=== PATIENT | male | born 1950 | race Caucasian/White ===

== ENCOUNTER 2024-03-05 11:34 | Inpatient (IN) ==
--- NOTE | 2024-03-05 12:02 | Emergency Department Note ---
Impression & Plan LECHUGA (dyspnea on exertion), Pulmonary emboli, Bronchopneumonia ED Provider Note HISTORY OF PRESENT ILLNESS: Patient is a 74-year-old male presenting with shortness of breath. provides most of history, given patient's dementia. Reports that the patient has been feeling short of breath today with any sort of exertion. Reports he is able to take about 10 steps before he becomes very winded. She reports this is new for him. He just had bilateral inguinal hernia repair surgery performed 6 days ago. Reports the patient has been doing well. He has been taking OxyContin at nighttime for his pain control and she reports his last dose was last night. Took a baby aspirin this morning. Denies any chest pain currently. Denies any DVT or PE history. He is not on any anticoagulation. He reportedly took a dose of baby aspirin this morning. He denies any pleuritic component to his shortness of breath. Denies any significant cough or fevers in the last few days. ROS: as above PHYSICAL EXAM: Constitutional: Patient appears in no acute distress. HENT: Head: Normocephalic and atraumatic. Eyes: EOMI, PERRL Mouth/Throat: Mucous membranes moist. Neck: Trachea midline. Neck supple. Cardiovascular: RRR, No murmurs, rubs or gallops. Intact distal pulses. Pulmonary/Chest: No respiratory distress. Breath sounds clear and equal bilaterally. No wheezes or rales. Abdominal: Abdomen soft, no tenderness, rebound or guarding. Musculoskeletal: No edema, tenderness or deformity noted. Skin: Warm and dry. No rash, erythema, pallor or cyanosis Psychiatric: Appropriate mood and affect for situation. Neurological: Alert and keenly responsive. CN II-XII grossly intact, moving all extremities equally and fully. MDM: - Vitals signs stable - History obtained via patient and patient's , given patient's dementia. History as above. - Chronic conditions affecting care: HTN - Differential diagnoses include, but are not limited to: Congestive heart failure; acute coronary syndrome; COPD/asthma exacerbation; pulmonary edema; pulmonary embolism; pneumonia; pneumothorax; viral syndrome - Order placed for continuous cardiac monitoring. At this time, monitor showed rate of 70 bpm with normal sinus rhythm, per my interpretation. - External medical records reviewed. Operative report dated was reviewed. Patient had bilateral inguinal hernia repair surgery knee via robotic assisted bilateral laparoscopic inguinal hernia repair. - EKG interpreted by myself showed normal sinus rhythm. Rate 70 bpm. QT 442. No acute ischemic changes. Noted to have a right bundle branch block. - Laboratory workup interpreted by myself showed leukocytosis (WBC 12.88) with left shift; stable electrolytes; normal troponin; normal BNP - COVID/flu/RSV negative - CXR negative for pneumonia, per my interpretation - CT PE obtained, given patient's dyspnea on exertion and recent surgery. CT PE showed small segmental and subsegmental PE within right lung. Also noted to have mild alveolar opacities in right lower lobe conerning for bronchopneumonia. - Patient started on heparin drip in ER. - Given 2g IV rocephin for pneumonia coverage. - Discussion was had with caseworker about patient's case and need for admission - Hospitalist consulted for admission - [facility] and [facility]. I have personally spent 32 minutes of critical care time in the direct management of this patient. This includes bedside care, interpretation of diagnostic studies, and testing, discussion with consultants, patient, and family members, and other required patient management activities. This 32 minutes is in excess of all separately billable procedures. 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 hx balance problem/now resolved. 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 Reading disability, developmental Reading comprehension disorder Fear of needles Dementia beginning stages/follows pcp SOB (shortness of breath) on exertion mild with daily activity and stairs. Bifascicular block 2 yr ago/Dr. Hu History of hypertension Surgical History (Updated 02/28/24 @ 13:19 by Makayla Lakhani RN) H/O bilateral inguinal hernia repair (02/28/24) Robotic Assisted Bilateral Laparoscopic Inguinal Hernia Repair(Bilateral) - Francisco Suggs DO, FACS History of colonoscopy H/O wisdom tooth extraction Family History Mother Hypertension Myocardial infarction Diabetes Father Myocardial infarction Hypertension Grandfather (Maternal) Myocardial infarction Hypertension Social History (Updated 12/29/23 @ 09:27 by Emma Johnson RN) Smoking Status: Never smoker Second Hand Exposure: No; Do You Dip or Chew Tobacco: No; Hx Alcohol Use: No Hx Substance Use: No Preferred Language: Turkish Communication Ability: Effective Communication Ability Comment: pt has beg stages dementia/ helps with interview/pt comm is effective Dog Track Kennel 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 Required: No Beliefs That Will Affect Care: None marital status: Current Living Situation: Spouse current occupational status: retired How many Children do You have: 2 Feels Safe at Home: Yes Diet: regular during the past year weight has: decreased > 10 lbs Assistive Devices: None Allergies Allergies Allergy/AdvReac Type Severity Reaction Status Date / Time acetaminophen [From Tylenol] Allergy Unknown Shortness Verified 03/05/24 13:08 of breath, rash diphenhydramine Allergy Unknown Rash Verified 03/05/24 13:08 [From Benadryl] ibuprofen [From Advil] Allergy Unknown Rash Verified 03/05/24 13:08 NSAIDS (Non-Steroidal Allergy Unknown Rash Verified 03/05/24 13:08 Anti-Inflamma Home Meds Home Medications Medication Instructions Recorded Confirmed Lactobacillus acidophilus and 1 cap PO HS 04/21/22 03/05/24 rhamnosus 15 billion cell capsule (Probiotic) aspirin 81 mg tablet,delayed 81 mg PO HS 04/21/22 03/05/24 release Previous Rx's Medication Instructions Recorded oxycodone 5 mg tablet 5 - 10 mg (1 - 2 x 5 mg) PO 03/03/24 .[id number] PRN pain, for initial therapy, max 6 tabs per day #15 tabs Results & Data (ED) Vital Signs Vital Signs - 24 hr 03/05/24 11:35 03/05/24 12:40 03/05/24 12:41 Temperature 36.8 C Temperature Source Temporal Artery Scan Pulse Rate 90 Pulse Rate [Apical] 78 Pulse Rhythm Regular Pulse Rhythm [Apical] Regular Pulse Strength [Apical] Normal Respiratory Rate 20 19 Respiratory Effort / Characteristics Non-Labored Spontaneous Non-Labored Spontaneous Respiratory Depth Normal Normal Respiratory Pattern Regular Blood Pressure 106/79 Blood Pressure [Right Arm] 166/109 H Blood Pressure Mean 88 Blood Pressure Mean [Right Arm] 128 Pulse Oximetry 97 97 98 Oxygen Delivery Method Room Air Room Air Room Air Sepsis Recent Fever Within 48 Hours No Sepsis New/Unexplained Change in Mental Status No Sepsis Action Taken by Nursing No Action Required 03/05/24 12:43 03/05/24 14:42 Temperature Temperature Source Pulse Rate 74 Pulse Rate [Apical] 70 Pulse Rhythm Pulse Rhythm [Apical] Pulse Strength [Apical] Normal Respiratory Rate 18 Respiratory Effort / Characteristics Non-Labored Spontaneous Respiratory Depth Normal Respiratory Pattern Regular Blood Pressure Blood Pressure [Right Arm] 179/103 H Blood Pressure Mean Blood Pressure Mean [Right Arm] 128 Pulse Oximetry 97 Oxygen Delivery Method Room Air Sepsis Recent Fever Within 48 Hours Sepsis New/Unexplained Change in Mental Status Sepsis Action Taken by Nursing Laboratory Data 03/05/24 12:00 03/05/24 12:00 Lab Results 03/05/24 03/05/24 Range/Units 12:00 Unknown WBC 12.88 H (4.8-10.8) K/ul RBC 4.82 (4.70-6.10) M/uL Hgb 15.3 (14.0-18.0) g/dl Hct 42.9 (42.0-52.0) % MCV 89.0 (80.0-100.0) fL MCH 31.7 (25.0-34.0) pg MCHC 35.7 (32.0-36.0) g/dL RDW Std Deviation 41.3 (36.4-46.3) fL RDW Coeff of Bailey 12.6 (11.5-14.5) % Plt Count 341 (130-400) K/uL MPV 9.1 L (9.4-12.4) fL Immature Gran % (Auto) 0.4 % Neut % (Auto) 75.5 % Lymph % (Auto) 14.8 % [place] % (Auto) 8.0 % Eos % (Auto) 0.6 % Baso % (Auto) 0.7 % Neut # (Auto) 9.73 H (1.40-6.50) K/uL Lymph # (Auto) 1.90 (1.20-3.40) K/uL [place] # (Auto) 1.03 H (0.11-0.59) K/uL Eos # (Auto) 0.08 (0.00-0.50) K/uL Baso # (Auto) 0.09 (0.00-0.20) K/uL Immature Gran # (Auto) 0.05 (0.01-0.20) K/uL PT 11.0 (9.0-12.0) Seconds INR 1.0 (0.9-1.1) Sodium 138 (136-145) mmol/L Potassium 4.3 (3.5-5.1) mmol/L Chloride 101 (98-107) mmol/L Carbon Dioxide 31 (21-32) mmol/L Anion Gap 6 (3-11) BUN 19 (6-23) mg/dl Creatinine 1.08 (0.6-1.4) mg/dl Est Cr Clr Drug Dosing 43.0 ml/min Est GFR ( Amer) 76.9 ml/min Est GFR (Non-Af Amer) 66.3 ml/min BUN/Creatinine Ratio 17.6 (10-20) Glucose 104 H (70-99(Fasting)) mg/dl Lactate 1.3 (0.4-2.0) mmol/L Calcium 9.6 (8.6-10.3) mg/dl Magnesium 2.2 (1.7-2.4) mg/dl Total Bilirubin 1.9 H (0.2-1.0) mg/dl AST 50 H (13-39) U/L ALT 49 (7-52) U/L Alkaline Phosphatase 62 (34-104) U/L Troponin I High Sens 5.4 (0-20) pg/ml B-Natriuretic Peptide 69 (0-100) pg/ml Total Protein 7.4 (6.0-8.3) gm/dl Albumin 4.2 (3.4-5.0) gm/dl Globulin 3.2 (2.5-4.0) gm/dl Albumin/Globulin Ratio 1.3 (0.9-2) SARS-CoV-2 (PCR) NEGATIVE (Negative) Influenza Type A (PCR) Negative (Neg) Influenza Type B (PCR) Negative (Neg) RSV (RT-PCR) Negative (Neg) Administered Medications Discontinued Medications Ioversol (Optiray 320 125ml) 74 ml IV ONCE ONE Stop: 03/05/24 13:48 Last Admin: 03/05/24 13:47 Dose: 74 ml Documented By: RAMÓN Imaging Data Radiologist's Impression: Chest X-Ray 03/05/24 11:50 SINGLE VIEW CHEST CLINICAL HISTORY: Dyspnea FINDINGS: 2 AP, portable, upright chest radiographs are compared to study dated 02/05/2024 and correlated with chest CT dated 04/21/2022. The heart is enlarged. The pulmonary vasculature is noncontrast. The lungs and pleural spaces are clear. No pneumothorax is seen. The skeletal structures are osteopenic. The bony thorax is grossly intact. IMPRESSION: Cardiomegaly with no active disease in the chest. ACT 112: Negative or not required by law. Electronically signed by: Aj Segal M.D. 03/05/2024 12:11 PM Chest CTA 03/05/24 13:32 CT ANGIOGRAPHY OF THE CHEST, PULMONARY EMBOLUS PROTOCOL CLINICAL HISTORY: Shortness of breath. Recent bilateral inguinal hernia repair. Evaluate for pulmonary embolus. COMPARISON STUDY: Chest CT April 21, 2022. Chest radiograph performed earlier today. TECHNIQUE: Following IV administration of 74 mL of Optiray, helical axial images of the chest were obtained utilizing the pulmonary embolus protocol. Maximal intensity projections and sagittal and coronal reformats were viewed on an independent 3D workstation. IV contrast was administered without complication. Automated exposure control was utilized for the study. A dose lowering technique was utilized adhering to the principles of ALARA. CT DOSE: 396.74 mGy.cm FINDINGS: There are several small segmental and subsegmental pulmonary emboli within the right lung, including a segmental pulmonary embolus within the right lower lobe on image 143. No central pulmonary embolus is present. There is no pneumothorax or pleural effusion. No thoracic lymphadenopathy is present. Pectus excavatum deformity is incidentally noted. A few alveolar opacities within the right lower lobe measure up to 2.1 cm. Central airways are patent. There are no acute fractures within the bony thorax. A small amount of extraluminal gas within the upper abdomen is noted. Peripherally calcified density adjacent to the thoracic aorta is unchanged since prior exam. This is benign. Mild upper abdominal/omental stranding is noted. IMPRESSION: 1. A few small segmental and subsegmental pulmonary emboli within the right lung. 2. Mild alveolar opacities within the right lower lobe which favor an infectious process such as bronchopneumonia. The appearance is not typical for pulmonary infarcts. 3. Small amount of extraluminal gas within the upper abdomen, likely postsurgical. 4. Mild upper abdominal/omental stranding, a nonspecific finding. ACT 112: Negative or not required by law. Electronically signed by: Parish Vaughan M.D. 03/05/2024 2:18 PM Discharge Plan Visit Data Chief Complaint: Leg Weakness, Bilateral Stated Complaint: SOB, TROUBLE WALKING ED Provider: Palmira Mckinney Discharge Problem: LECHUGA (dyspnea on exertion), Pulmonary emboli, Bronchopneumonia Forms Stand Alone Forms: [employer] Prescriptions Prescriptions: No Action oxycodone 5 mg tablet 5 - 10 mg PO .[id number] PRN (Reason: pain, for initial therapy, max 6 tabs per day) Qty: 15 0RF aspirin 81 mg Tablet,Delayed Release (Dr/Ec) 81 mg PO HS Probiotic 15 billion cell Capsule 1 cap PO HS Referrals Referrals: Pratik Shabazz MD [Primary Care Provider] -
--- NOTE | 2024-03-05 12:12 | XRay Report ---
SINGLE VIEW CHEST CLINICAL HISTORY: Dyspnea FINDINGS: 2 AP, portable, upright chest radiographs are compared to study dated 02/05/2024 and correla tray with chest CT dated 04/21/2022. The heart is enlarged. The pulmonary vasculature is noncontrast. Th e lungs and pleural spaces are clear. No pneumothorax is seen. The skeletal structures are osteopenic . The bony thorax is grossly intact. IMPRESSION: Cardiomegaly with no active disease in the chest. ACT 112: Negative or not required by law. Electronically signed by: Aj Segal M.D. 03/05/2024 12:11 PM
[2024-03-05 12:19] LABS: Basophils # (auto) 0.09 K/uL (0.00-0.20); Basophils % (auto) 0.7 %; Eosinophils # (auto) 0.08 K/uL (0.00-0.50); Eosinophils % (auto) 0.6 %; Hematocrit (blood only) 42.9 % (42.0-52.0); Hemoglobin 15.3 g/dl (14.0-18.0); Immature Granulocytes # (auto) 0.05 K/uL (0.01-0.20); Immature Granulocytes % (auto) 0.4 %; Lymphocytes % (auto) 14.8 %; Mean Corpuscular Hemoglobin 31.7 pg (25.0-34.0); Mean Corpuscular Hgb Conc 35.7 g/dL (32.0-36.0); Mean Platelet Volume 9.1 fL (9.4-12.4); Monocytes # (auto) 1.03 K/uL (0.11-0.59); Neutrophils # (auto) 9.73 K/uL (1.40-6.50); Neutrophils % (auto) 75.5 %; Platelet Count 341 K/uL (130-400); RDW Coefficient of Variation 12.6 % (11.5-14.5); RDW Standard Deviation 41.3 fL (36.4-46.3); Red Blood Count 4.82 M/uL (4.70-6.10); White Blood Count 12.88 K/ul (4.8-10.8)
[2024-03-05 12:36] LABS: Albumin Globulin Ratio 1.3 (0.9-2); Albumin Level 4.2 gm/dl (3.4-5.0); BUN Creatinine Ratio 17.6 (10-20); Bilirubin,Total 1.9 mg/dl (0.2-1.0); Calcium 9.6 mg/dl (8.6-10.3); Est GFR (African American) 76.9 ml/min; Est GFR (Non-African American) 66.3 ml/min; Globulin 3.2 gm/dl (2.5-4.0); Magnesium 2.2 mg/dl (1.7-2.4); Potassium 4.3 mmol/L (3.5-5.1); Total Protein 7.4 gm/dl (6.0-8.3)
[2024-03-05 12:41] LABS: Troponin I High Sensitivity 5.4 pg/ml (0-20)
[2024-03-05 13:30] LABS: Influenza A virus by PCR Negative (Neg); Influenza B virus by PCR Negative (Neg); RSV by PCR Negative (Neg); SARS CoV2 RNA(COVID-19) Ceph NEGATIVE (Negative)
--- NOTE | 2024-03-05 13:45 | Electrocardiogram Report ---
Test Reason : Blood Pressure : / mmHG Vent. Rate : 070 BPM Atrial Rate : 070 BPM P-R Int : 154 ms QRS Dur : 136 ms QT Int : 442 ms P-R-T Axes : 058 -42 027 degrees QTc Int : 477 ms Normal sinus rhythm Left axis deviation Right bundle branch block Abnormal ECG When compared with ECG of 05-FEB-2024 12:05, Nonspecific T wave abnormality now evident in Anterior leads Confirmed by Pratik Miramontes ([id number]) on 03/05/2024 1:45:45 PM Referred By: REFERRED SELF Confirmed By:Cassius Miramontes
[2024-03-05] MEDS: OPTIRAY 320 125ml IV ONE (13:47)
--- NOTE | 2024-03-05 14:19 | CT Scan Report ---
CT ANGIOGRAPHY OF THE CHEST, PULMONARY EMBOLUS PROTOCOL CLINICAL HISTORY: Shortness of breath. Recent bilateral inguinal hernia repair. Evaluate for pulmonar y embolus. COMPARISON STUDY: Chest CT April 21, 2022. Chest radiograph performed earlier today. TECHNIQUE: Following IV administration of 74 mL of Optiray, helical axial images of the chest were ob tained utilizing the pulmonary embolus protocol. Maximal intensity projections and sagittal and francis nal reformats were viewed on an independent 3D workstation. IV contrast was administered without com plication. Automated exposure control was utilized for the study. A dose lowering technique was uti lized adhering to the principles of ALARA. CT DOSE: 396.74 mGy.cm FINDINGS: There are several small segmental and subsegmental pulmonary emboli within the right lung, including a segmental pulmonary embolus within the right lower lobe on image 143. No central pulmona ry embolus is present. There is no pneumothorax or pleural effusion. No thoracic lymphadenopathy is p resent. Pectus excavatum deformity is incidentally noted. A few alveolar opacities within the right l ower lobe measure up to 2.1 cm. Central airways are patent. There are no acute fractures within the b percy thorax. A small amount of extraluminal gas within the upper abdomen is noted. Peripherally calcif ied density adjacent to the thoracic aorta is unchanged since prior exam. This is benign. Mild upper abdominal/omental stranding is noted. IMPRESSION: 1. A few small segmental and subsegmental pulmonary emboli within the right lung. 2. Mild alveolar opacities within the right lower lobe which favor an infectious process such as bron chopneumonia. The appearance is not typical for pulmonary infarcts. 3. Small amount of extraluminal gas within the upper abdomen, likely postsurgical. 4. Mild upper abdominal/omental stranding, a nonspecific finding. ACT 112: Negative or not required by law. Electronically signed by: Parish Vaughan M.D. 03/05/2024 2:18 PM
[2024-03-05 15:13] LABS: Appearance Urine Clear (Clear); Bilirubin Urine Negative (Negative); Blood Urine Negative (Negative); Color Urine Yellow; Glucose Urine UA Negative (Negative); Ketones Urine Trace (Negative); Leukocyte Esterase Urine Negative (Negative); Nitrite Urine Negative (Negative); Protein Urine Negative (Negative); Urobilinogen Urine Negative (Negative)
--- NOTE | 2024-03-05 15:18 | History & Physical Report ---
Date of Service March 05, 2024 Assessment & Plan (1) Pulmonary emboli: Plan: -Admit to med/tele on pulse oximetry -Currently hemodynamically stable, stable on RA, and non-toxic appearing -High sen trop and BNP are WNL -No acute ECG changes -Presented to the ED with acute onset of SOB and LECHUGA this am -CTA of the chest shows new, small segmental and subsegmental pulmonary emboli within the right lung -Would consider this provoked as he had BL hernia repair on 02/28/24 -Spoke with Dr. Suggs regarding bleeding risk from recent surgery and need for anticoagulation >At this time there are no contraindications from his recent surgical repair to being anticoagulation -Will start weight based heparin drip without bolus on admission -Will obtain BL Venous doppler of the LE's and TTE for further evaluation -Continue to monitor on [facility] - diet -AM CBC, CMP, mag, PT/INR (2) Bronchopneumonia: Plan: -Noted on CTA of the chest in the RLL -CTA read specifically noted this does not appear consistent with a Pulmonary infarct from his new PE's -Does have a mild leukocytosis, will add on procal -S/P one dose of Ceftriaxone in the ED -Will start Unasyn for possible aspiration pneumonia -Will add on MRSA nasal swab -Incentive spirometry, flutter therapy, prn O2 to keep SpO2 at or above 92% (3) LECHUGA (dyspnea on exertion): Plan: -Likely due to his new PE's and bronchopneumonia diagnosed today -Cardiac workup has been unremarkable -See Bronchopneumonia and PE treatment plans (4) Left hip pain: Plan: -Patient has been experiencing left hip pain since his fall out of bed 48 hours ago -Has been able to ambulate per -Will obtain xray of the left hip/pelvis for further evaluation (5) Dementia: Plan: -Pleasantly confused, easy to redirect -Will star aspiration and fall precautions with bed alarm (6) Bilateral inguinal hernia: Plan: -With Dr. Suggs on 02/28/24 -Surgical sites appear to be healing well without dehiscence or infection -General surgery is comfortable to start heparin drip for new PE's Plan The patient was discussed with Dr. 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 Suggs on 02/28/24 who presented to the [facility] ED with his on 03/05/24 for progressive SOB and LECHUGA. He was noted to be hypertensive at 166/109 but otherwise stable. Labs were significant for a leukocytosis of 12 with neutrophile predominance of 9, total bili of 1.9, AST of 50 clear UA, and Covid 19/Influenza/RSV negative. Chest xray was read as "Cardiomegaly with no active disease in the chest.". CTA of the chest with PE protocol was read as "1. A few small segmental and subsegmental pulmonary emboli within the right lung. 2. Mild alveolar opacities within the right lower lobe which favor an infectious process such as bronchopneumonia. The appearance is not typical for pulmonary infarcts. 3. Small amount of extraluminal gas within the upper abdomen, likely postsurgical. 4. Mild upper abdominal/omental stranding, a nonspecific finding.". Prior to admission the patient was given a dose of ceftriaxone and ordered a weight based heparin drip wo bolus. At the time of the exam the patient was sitting in bed in no acute distress with his bedside; history was mainly obtained from the patient's due to his hx of dementia. She states that the patient had been doing well since discharge. He did experience a fall out of bed approximately 48 hours ago. This occurred due to the patient being closer to the edge of the bed than he thought and slipping. He landed on his left side and did hit the left forehead on the ground. He did not lose consciousness and only uses prn Aspirin at home. He was able to get himself up off the ground without issue and has been acting himself per his . He has been experiencing left sided hip pain since the fall. This am the patient woke and began experiencing SOB at rest and significant LECHUGA with minimal ambulation. Patient has not been experiencing fever, chills, chest pain, cough, hemoptysis, and pain, nausea, vomiting, diarrhea, dysuria, hematuria. He is a full code and his is his POA. Please refer to Dr. Stewart's attestation for any changes to the treatment Allergies Allergy/AdvReac Type Severity Reaction Status Date / Time acetaminophen [From Tylenol] Allergy Unknown Shortness Verified 03/05/24 13:08 of breath, rash diphenhydramine Allergy Unknown Rash Verified 03/05/24 13:08 [From Benadryl] ibuprofen [From Advil] Allergy Unknown Rash Verified 03/05/24 13:08 NSAIDS (Non-Steroidal Allergy Unknown Rash Verified 03/05/24 13:08 Anti-Inflamma Home Medications Medication Instructions Recorded Confirmed Type Lactobacillus acidophilus and 1 cap PO HS 04/21/22 03/05/24 History rhamnosus 15 billion cell capsule (Probiotic) aspirin 81 mg tablet,delayed 81 mg PO HS 04/21/22 03/05/24 History release oxycodone 5 mg tablet 5 - 10 mg (1 - 2 x 5 mg) PO 03/03/24 03/05/24 Rx .[id number] PRN pain, for initial therapy, max 6 tabs per day #15 tabs Past Med/Surg History Medical History (Updated 03/05/24 @ 15:57 by FRANSISCO AllenC) History of COVID-19 2 yr ago / 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 hx balance problem/now resolved. 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 Reading disability, developmental Reading comprehension disorder Fear of needles Dementia beginning stages/follows pcp SOB (shortness of breath) on exertion mild with daily activity and stairs. Bifascicular block 2 yr ago/Dr. Hu History of hypertension Surgical History (Updated 02/28/24 @ 13:19 by Makayla Lakhani, NICOLE) H/O bilateral inguinal hernia repair (02/28/24) Robotic Assisted Bilateral Laparoscopic Inguinal Hernia Repair(Bilateral) - Francisco Suggs DO, FACS History of colonoscopy H/O wisdom tooth extraction Family History Mother Hypertension Myocardial infarction Diabetes Father Myocardial infarction Hypertension Grandfather (Maternal) Myocardial infarction Hypertension Social History (Updated 12/29/23 @ 09:27 by Emma Johnson, RN) Smoking Status: Never smoker Second Hand Exposure: No; Do You Dip or Chew Tobacco: No; Hx Alcohol Use: No Hx Substance Use: No Preferred Language: Guamanian Communication Ability: Effective Communication Ability Comment: pt has beg stages dementia/ helps with interview/pt comm is effective 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 Beliefs That Will Affect Care: None marital status: Current Living Situation: Spouse current occupational status: retired How many Children do You have: 2 Feels Safe at Home: Yes Diet: regular during the past year weight has: decreased > 10 lbs Assistive Devices: None Physical Exam Physical Exam: Physical Exam: General: In no acute distress, stated age, well-nourished, good hygiene HEENT: Normocephalic, atraumatic, no scleral icterus, pupils around round, symmetrical, and reactive to light, moist mucus membranes, trachea midline, no thyromegaly Chest/Pulm: No respiratory distress, symmetrical chest expansion, clear breath sounds throughout Cardiac: RRR, no murmurs noted Abdomen: Negative for ascites and bruising, laparoscopic surgical scars appears well healed and without signs of infection or bleeding, normoactive bowel sounds, soft, non-tender to palpation throughout Musculoskeletal: Symmetrical and without signs of acute trauma, upper and lower extremities with full ROM, no atrophy, spasticity, or flaccidity Extremities: Radial, dorsalis pedis, and posterior tibial pulses are intact and symmetrical, no edema noted in the BL LE's Skin: Warm, dry, no rashes , lesions, or scars noted Neuro: Alert and oriented to person only, pleasantly confused, no focal defects, no tremors noted Psych: No acute distress, calm and cooperative during the exam Results & Data Results & Data Vital Signs (Past 12 Hours) Vital Signs Temp Pulse Pulse Resp BP BP Pulse Ox 03/05/24 14:42 70 18 179/103 H 97 03/05/24 12:43 74 03/05/24 12:41 78 19 166/109 H 98 03/05/24 12:40 97 03/05/24 11:35 36.8 C 90 20 106/79 97 O2 Del Method 03/05/24 14:42 Room Air 03/05/24 12:43 03/05/24 12:41 Room Air 03/05/24 12:40 Room Air 03/05/24 11:35 Room Air Laboratory Results Abnormal lab results 03/05/24 03/05/24 Range/Units 12:00 14:19 WBC 12.88 H (4.8-10.8) K/ul MPV 9.1 L (9.4-12.4) fL Neut # (Auto) 9.73 H (1.40-6.50) K/uL [place] # (Auto) 1.03 H (0.11-0.59) K/uL Glucose 104 H (70-99(Fasting)) mg/dl Total Bilirubin 1.9 H (0.2-1.0) mg/dl AST 50 H (13-39) U/L Urine pH 8.0 H (4.5-7.5) Urine Ketones Trace H (Negative) Diagnostic Findings Chest X-Ray 03/05/24 11:50 SINGLE VIEW CHEST CLINICAL HISTORY: Dyspnea FINDINGS: 2 AP, portable, upright chest radiographs are compared to study dated 02/05/2024 and correlated with chest CT dated 04/21/2022. The heart is enlarged. The pulmonary vasculature is noncontrast. The lungs and pleural spaces are clear. No pneumothorax is seen. The skeletal structures are osteopenic. The bony thorax is grossly intact. IMPRESSION: Cardiomegaly with no active disease in the chest. ACT 112: Negative or not required by law. Electronically signed by: Aj Segal M.D. 03/05/2024 12:11 PM Chest CTA 03/05/24 13:32 CT ANGIOGRAPHY OF THE CHEST, PULMONARY EMBOLUS PROTOCOL CLINICAL HISTORY: Shortness of breath. Recent bilateral inguinal hernia repair. Evaluate for pulmonary embolus. COMPARISON STUDY: Chest CT April 21, 2022. Chest radiograph performed earlier today. TECHNIQUE: Following IV administration of 74 mL of Optiray, helical axial images of the chest were obtained utilizing the pulmonary embolus protocol. Maximal intensity projections and sagittal and coronal reformats were viewed on an independent 3D workstation. IV contrast was administered without complication. Automated exposure control was utilized for the study. A dose lowering technique was utilized adhering to the principles of ALARA. CT DOSE: 396.74 mGy.cm FINDINGS: There are several small segmental and subsegmental pulmonary emboli within the right lung, including a segmental pulmonary embolus within the right lower lobe on image 143. No central pulmonary embolus is present. There is no pneumothorax or pleural effusion. No thoracic lymphadenopathy is present. Pectus excavatum deformity is incidentally noted. A few alveolar opacities within the right lower lobe measure up to 2.1 cm. Central airways are patent. There are no acute fractures within the bony thorax. A small amount of extraluminal gas within the upper abdomen is noted. Peripherally calcified density adjacent to the thoracic aorta is unchanged since prior exam. This is benign. Mild upper abdominal/omental stranding is noted. IMPRESSION: 1. A few small segmental and subsegmental pulmonary emboli within the right lung. 2. Mild alveolar opacities within the right lower lobe which favor an infectious process such as bronchopneumonia. The appearance is not typical for pulmonary infarcts. 3. Small amount of extraluminal gas within the upper abdomen, likely postsurgical. 4. Mild upper abdominal/omental stranding, a nonspecific finding. ACT 112: Negative or not required by law. Electronically signed by: Parish Vaughan M.D. 03/05/2024 2:18 PM ECG Additional Comments: Normal sinus rhythm Left axis deviation Right bundle branch block Abnormal ECG When compared with ECG of 05-FEB-2024 12:05, Nonspecific T wave abnormality now evident in Anterior leads Confirmed by Pratik Miramontes ([id number]) on 03/05/2024 1:45:45 PM Code Status & VTE Plan Code Status Full code VTE Prophylaxis Plan VTE Prophylaxis will be ordered: Yes PG Care Time/CCT Total # of Minutes Spent Total Time Spent with Patient: Total time spent is greater than 50% in coordination of care (as documented) at patient's floor/unit and/or counseling patient: Coding [place] [address] INT INP/OBS CARE 3/75MIN Patient Type Established History Comprehensive Exam Comprehensive Medical Decision Making High Complexity Diagnoses Pulmonary emboli I26.99 Bronchopneumonia J18.0 LECHUGA (dyspnea on exertion) R06.09 Left hip pain M25.552 Dementia F03.90 Bilateral inguinal hernia K40.20
[2024-03-05 15:28] LABS: Partial Thromboplastin Ratio 1.1; Partial Thromboplastin Time 31 Seconds (21-31)
[2024-03-05] MEDS ORDERED: traMADol HCL 50 MG TABLET PO PRN (15:45)
[2024-03-05] MEDS: cefTRIAXone SODIUM 2,000 MG/50 ML BAG IV STA (15:48)
[2024-03-05] MEDS: HEPARIN SODIUM/DEXTROSE 25,000 UNITS/500 ML BAG IV SCH (15:51)
[2024-03-05] MEDS: Heparin IV Adult Wt-Based Standard *NO* INITIAL Bolus Protocol IV STA (15:56)
--- NOTE | 2024-03-05 16:14 | XRay Report ---
SINGLE VIEW PELVIS; 2 VIEWS LEFT HIP CLINICAL HISTORY: Fall. Left hip pain. FINDINGS: An AP view of the pelvis with AP and frog-leg views of the left hip are obtained. No prior studies are available for comparison at the time of dictation. The skeletal structures are osteopenic . There is no radiographic evidence of acute fracture involving the hips or bony pelvis. Mild arthrit ic change is seen in the hips. There is degenerative sclerosis of the sacroiliac joints. Excreted IV contrast fills the bladder. The overlying soft tissues are within normal limits. IMPRESSION: No acute bony abnormality is identified. Electronically signed by: Aj Segal M.D. 03/05/2024 4:13 PM
[2024-03-05] MEDS: AMPICILLIN/SULBACTAM SOD 3,000 MG in SODIUM CHLOR 0.9% MINI-B 100 ML IV SCH (16:30)
[2024-03-05] MEDS: DOCUSATE SODIUM 100 MG CAP PO SCH (20:45)
[2024-03-05 23:32] LABS: ANTI-Xa, UFH(UnfractionatedHep 0.41 IU/ml (0.3-0.7)
--- NOTE | 2024-03-05 23:51 | Ultrasound Report ---
Exam(s): US VENOUS BILATERAL LOWER EXTREMITIES EXAM: US Duplex Bilateral Lower Extremities Veins CLINICAL HISTORY: Reason for exam: New PE's, please monitor for DVT. TECHNIQUE: Real-time duplex ultrasound scan of the bilateral lower extremity veins integrating B-mode two-dimensional vascular structure, Doppler spectral analysis, color flow Doppler imaging and compression. COMPARISON: No relevant prior studies available. FINDINGS: Right deep veins: Unremarkable. No DVT in the right common femoral, femoral, proximal deep femoral or popliteal veins. The veins demonstrate normal color flow, are normally compressible, with normal phasic flow and/or augmentation response. Right superficial veins: Unremarkable. No thrombus in the visualized right great saphenous vein. Left deep veins: Unremarkable. No DVT in the left common femoral, femoral, proximal deep femoral or popliteal veins. The veins demonstrate normal color flow, are normally compressible, with normal phasic flow and/or augmentation response. Left superficial veins: Unremarkable. No thrombus in the visualized left great saphenous vein. Soft tissues: No acute findings. No popliteal cyst. IMPRESSION: No evidence of DVT in the lower extremities. Electronically signed by: Jose M Mcneill MD 03/05/24 23:50 PM
[2024-03-06 04:58] LABS: Basophils # (auto) 0.09 K/uL (0.00-0.20); Basophils % (auto) 0.8 %; Eosinophils # (auto) 0.14 K/uL (0.00-0.50); Eosinophils % (auto) 1.2 %; Hematocrit (blood only) 39.7 % (42.0-52.0); Hemoglobin 13.6 g/dl (14.0-18.0); Immature Granulocytes # (auto) 0.05 K/uL (0.01-0.20); Immature Granulocytes % (auto) 0.4 %; Lymphocytes # (auto) 1.77 K/uL (1.20-3.40); Lymphocytes % (auto) 15.3 %; Mean Corpuscular Hemoglobin 30.6 pg (25.0-34.0); Mean Corpuscular Hgb Conc 34.3 g/dL (32.0-36.0); Mean Corpuscular Volume 89.2 fL (80.0-100.0); Monocytes # (auto) 1.12 K/uL (0.11-0.59); Monocytes % (auto) 9.7 %; Neutrophils # (auto) 8.38 K/uL (1.40-6.50); Neutrophils % (auto) 72.6 %; Platelet Count 300 K/uL (130-400); RDW Coefficient of Variation 12.4 % (11.5-14.5); RDW Standard Deviation 40.9 fL (36.4-46.3); Red Blood Count 4.45 M/uL (4.70-6.10); White Blood Count 11.55 K/ul (4.8-10.8)
[2024-03-06 05:08] LABS: BUN Creatinine Ratio 16.1 (10-20); Calcium 9.1 mg/dl (8.6-10.3); Est GFR (African American) 92.1 ml/min; Est GFR (Non-African American) 79.5 ml/min; Magnesium 2.1 mg/dl (1.7-2.4); Potassium 3.9 mmol/L (3.5-5.1)
[2024-03-06 06:01] LABS: ANTI-Xa, UFH(UnfractionatedHep 0.45 IU/ml (0.3-0.7); INR 1.1 (0.9-1.1); Prothrombin Time 11.7 Seconds (9.0-12.0)
--- NOTE | 2024-03-06 07:45 | Hospitalist Progress Note ---
Date of Service March 06, 2024 Assessment & Plan (1) Pulmonary emboli: (2) Bronchopneumonia: (3) LECHUGA (dyspnea on exertion): (4) Left hip pain: (5) Dementia: (6) Bilateral inguinal hernia: Plan #Pulmonary emboli -Currently hemodynamically stable, stable on RA, and non-toxic appearing -High sen trop and BNP are WNL -SOB and LECHUGA improved -CTA of the chest shows new, small segmental and subsegmental pulmonary emboli within the right lung -Would consider this provoked as he had BL hernia repair on 02/28/24 -Discussed with Dr. Suggs at time of admission --> no contraindications to anticoagulation. -Started on heparin drip --> transitioned to Eliquis on 03/06. -Eliquis 10mg BID for 7 days, then 5mg BID. -BL Venous doppler of the LE's negative -TTE pending. #Bronchopneumonia: -Noted on CTA of the chest in the RLL -CTA read specifically noted this does not appear consistent with a Pulmonary infarct from his new PE's -Does have a mild leukocytosis -S/P one dose of Ceftriaxone in the ED and Unasyn on admission. -MRSA nasal swab negative -Will transition to Augmentin 875 BID for 7 days. -Incentive spirometry, flutter therapy, #Left hip pain -Patient has been experiencing left hip pain since his fall out of bed 48 hours ago -Has been able to ambulate per -xray of the left hip/pelvis negative -PT/OT ordered #Dementia -Pleasantly confused, easy to redirect -Will star aspiration and fall precautions with bed alarm #Bilateral inguinal hernia -With Dr. Suggs on 02/28/24 -Surgical sites appear to be healing well without dehiscence or infection Admission and Anticipated Discharge Date Admission Date: March 05, 2024 Supervising Physician Co-Signing Physician Notes Attending attestation Pt seen and examined in concert with Dr. Guzman. In agreement with the documented findings as noted in the resident documentation with any exceptions or additions as noted here. Resting comfortably in chair at bedside without acute complaint at present. Denies chest pain, shortness of breath, fatigue, abdominal pain. On examination, S1/S2 nl RRR no MCG. CTAB. Abd NT/ND BS+ve Pulmonary embolism - transition from heparin to DOAC and monitor for tolerance, precautions reviewed re: causes, course of treatment and importance of follow up Pneumonia - visible on imaging but asympomatic on presentation and afebrile. Will continue treatment and likely transition to PO abx with culture to limit postoperative complications Else see resident documentation as noted. Subjective Patient was seen bedside this AM. No issues or concerns. No SOB, CP, ab pain, N/V. Review of Systems Review of Systems: All systems reviewed & are unremarkable except as noted in Subjective Physical Exam Physical Exam: General: In no acute distress, HEENT: Normocephalic, atraumatic, no scleral icterus, pupils around round, symmetrical, and reactive to light, moist mucus membranes, trachea midline, no thyromegaly Lungs: No respiratory distress, symmetrical chest expansion, clear breath sounds throughout Cardiac: RRR, no murmurs noted Abdomen: Negative for ascites and bruising, scars appears well healed, normoactive bowel sounds, soft, non-tender to palpation throughout Musculoskeletal: Symmetrical and without signs of acute trauma, upper and lower extremities with full ROM, no atrophy, spasticity, or flaccidity Extremities: Radial, dorsalis pedis, and posterior tibial pulses are intact and symmetrical, no edema noted in the BL LE's Skin: Warm, dry, no rashes , lesions, or scars noted Neuro: Alert and oriented to person only, pleasantly confused, no focal defects, no tremors noted Psych: No acute distress, calm and cooperative during the exam Results & Data Results & Data Vital Signs (Past 12 Hours) Vital Signs Temp Pulse Pulse Pulse Resp BP BP 03/06/24 07:39 36.8 C 79 147/95 H 03/06/24 06:01 64 03/06/24 01:10 36.8 C 74 16 164/98 H 03/05/24 22:01 75 03/05/24 20:36 37.1 C 90 16 135/89 03/05/24 20:00 03/05/24 19:58 76 Pulse Ox O2 Del Method 03/06/24 07:39 95 Room Air 03/06/24 06:01 03/06/24 01:10 94 Room Air 03/05/24 22:01 03/05/24 20:36 96 Room Air 03/05/24 20:00 Room Air 03/05/24 19:58
[2024-03-06] MEDS: APIXABAN 5 MG TABLET PO SCH (12:01)
--- NOTE | 2024-03-06 19:13 | XCELERA ---
[id number] \\[id number]
[2024-03-06] MEDS: AMOXICILLIN/CLAVULANATE 875 MG TAB PO SCH (19:32)
[2024-03-06] MEDS: OLANZapine 10 MG/2.1 ML SDV IM STA (22:33)
[2024-03-07] MEDS: OLANZapine 10 MG/2.1 ML SDV IM ONE (00:37)
[2024-03-07] MEDS: OLANZapine 10 MG/2.1 ML SDV IM STA ×2 (00:38→01:38)
--- NOTE | 2024-03-07 07:24 | Discharge Summary ---
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 Suggs on 02/28/24 who presented to the [facility] ED with his on 03/05/24 for progressive SOB and LECHUGA. He was noted to be hypertensive at 166/109 but otherwise stable. Labs were significant for a leukocytosis of 12 with neutrophile predominance of 9, total bili of 1.9, AST of 50 clear UA, and Covid 19/Influenza/RSV negative. Chest xray was read as "Cardiomegaly with no active disease in the chest.". CTA of the chest with PE protocol was read as "1. A few small segmental and subsegmental pulmonary emboli within the right lung. 2. Mild alveolar opacities within the right lower lobe which favor an infectious process such as bronchopneumonia. The appearance is not typical for pulmonary infarcts. 3. Small amount of extraluminal gas within the upper abdomen, likely postsurgical. 4. Mild upper abdominal/omental stranding, a nonspecific finding.". Prior to admission the patient was given a dose of ceftriaxone and ordered a weight based heparin drip wo bolus. At the time of the exam the patient was sitting in bed in no acute distress with his bedside; history was mainly obtained from the patient's due to his hx of dementia. She states that the patient had been doing well since discharge. He did experience a fall out of bed approximately 48 hours ago. This occurred due to the patient being closer to the edge of the bed than he thought and slipping. He landed on his left side and did hit the left forehead on the ground. He did not lose consciousness and only uses prn Aspirin at home. He was able to get himself up off the ground without issue and has been acting himself per his . He has been experiencing left sided hip pain since the fall. This am the patient woke and began experiencing SOB at rest and significant LECHUGA with minimal ambulation. Patient has not been experiencing fever, chills, chest pain, cough, hemoptysis, and pain, nausea, vomiting, diarrhea, dysuria, hematuria. He is a full code and his is his POA. Please refer to Dr. Stewart's attestation for any changes to the treatment Discharge Data Allergies Allergy/AdvReac Type Severity Reaction Status Date / Time acetaminophen [From Tylenol] Allergy Unknown Shortness Verified 03/05/24 13:08 of breath, rash diphenhydramine Allergy Unknown Rash Verified 03/05/24 13:08 [From Benadryl] ibuprofen [From Advil] Allergy Unknown Rash Verified 03/05/24 13:08 NSAIDS (Non-Steroidal Allergy Unknown Rash Verified 03/05/24 13:08 Anti-Inflamma Consultations 03/05/24 14:48 ED Decision to Admit Stat Ordered Studies 03/05/24 13:32 CT for pulmonary embolism PE [CT angio chest PE protocol] Stat 03/05/24 15:44 US venous doppler [facility] Urgent Hospital Course (1) Pulmonary emboli: (2) Bronchopneumonia: (3) LECHUGA (dyspnea on exertion): (4) Left hip pain: (5) Dementia: (6) Bilateral inguinal hernia: Plan #Pulmonary emboli -Currently hemodynamically stable, stable on RA, and non-toxic appearing -High sen trop and BNP are WNL -SOB and LECHUGA improved -CTA of the chest shows new, small segmental and subsegmental pulmonary emboli within the right lung -Would consider this provoked as he had BL hernia repair on 02/28/24 -Discussed with Dr. Suggs at time of admission --> no contraindications to anticoagulation. -Started on heparin drip --> transitioned to Eliquis on 03/06. -Eliquis 10mg BID for 7 days, then 5mg BID. -BL Venous doppler of the LE's negative -TTE pending. #Bronchopneumonia: -Noted on CTA of the chest in the RLL -CTA read specifically noted this does not appear consistent with a Pulmonary infarct from his new PE's -Does have a mild leukocytosis -S/P one dose of Ceftriaxone in the ED and Unasyn on admission. -MRSA nasal swab negative -Will transition to Augmentin 875 BID for 7 days. -Incentive spirometry, flutter therapy, #Left hip pain -Patient has been experiencing left hip pain since his fall out of bed 48 hours ago -Has been able to ambulate per -xray of the left hip/pelvis negative -PT/OT ordered #Dementia -Pleasantly confused, easy to redirect -Will star aspiration and fall precautions with bed alarm #Bilateral inguinal hernia -With Dr. Suggs on 02/28/24 -Surgical sites appear to be healing well without dehiscence or infection Discharge Plan Discharge Items Reason For Visit: SOB/LECHUGA, NEW PE'S, PNEUMONIA Follow-up/Referrals: Pratik Shabazz MD [Primary Care Provider] - Medications and DC Order Prescriptions: No Action oxycodone 5 mg tablet 5 - 10 mg PO .[id number] PRN (Reason: pain, for initial therapy, max 6 tabs per day) Qty: 15 0RF aspirin 81 mg Tablet,Delayed Release (Dr/Ec) 81 mg PO HS Probiotic 15 billion cell Capsule 1 cap PO HS Admission Data Admit Date/Time: 03/05/24 15:19 Attending Provider: Pratik Shabazz Admit Provider: Campos Stewart Primary Care Provider: Pratik Shabazz Other Providers: Campos Stewart
[2024-03-07 15:13] LABS: Basophils # (auto) 0.09 K/uL (0.00-0.20); Basophils % (auto) 0.5 %; Eosinophils # (auto) 0.07 K/uL (0.00-0.50); Eosinophils % (auto) 0.4 %; Hematocrit (blood only) 41.4 % (42.0-52.0); Hemoglobin 14.7 g/dl (14.0-18.0); Immature Granulocytes # (auto) 0.06 K/uL (0.01-0.20); Immature Granulocytes % (auto) 0.4 %; Lymphocytes # (auto) 2.05 K/uL (1.20-3.40); Lymphocytes % (auto) 12.4 %; Mean Corpuscular Hemoglobin 30.9 pg (25.0-34.0); Mean Corpuscular Hgb Conc 35.5 g/dL (32.0-36.0); Mean Corpuscular Volume 87.2 fL (80.0-100.0); Mean Platelet Volume 9.1 fL (9.4-12.4); Monocytes # (auto) 1.36 K/uL (0.11-0.59); Monocytes % (auto) 8.2 %; Neutrophils # (auto) 12.87 K/uL (1.40-6.50); Neutrophils % (auto) 78.1 %; Platelet Count 339 K/uL (130-400); RDW Coefficient of Variation 12.3 % (11.5-14.5); RDW Standard Deviation 39.3 fL (36.4-46.3); Red Blood Count 4.75 M/uL (4.70-6.10)
[2024-03-07 15:34] LABS: Calcium 9.2 mg/dl (8.6-10.3); Potassium 3.8 mmol/L (3.5-5.1)
[2024-03-07 15:40] LABS: BUN Creatinine Ratio 21.1 (10-20); Creatinine Clr Calc Pharmacy 48.9 ml/min; Est GFR (African American) 89.8 ml/min; Est GFR (Non-African American) 77.4 ml/min
--- NOTE | 2024-03-07 15:40 | Hospitalist Progress Note ---
Date of Service March 07, 2024 Assessment & Plan (1) Pulmonary emboli: (2) Bronchopneumonia: (3) LECHUGA (dyspnea on exertion): (4) Left hip pain: (5) Dementia: (6) Bilateral inguinal hernia: Plan #Pulmonary emboli -Currently hemodynamically stable, stable on RA, and non-toxic appearing -High sen trop and BNP are WNL -SOB and LECHUGA improved -CTA of the chest shows new, small segmental and subsegmental pulmonary emboli within the right lung -Would consider this provoked as he had BL hernia repair on 02/28/24 -Discussed with Dr. Suggs at time of admission --> no contraindications to anticoagulation. -Started on heparin drip --> transitioned to Eliquis on 03/06. -Eliquis 10mg BID for 7 days, then 5mg BID. -BL Venous doppler of the LE's negative -TTE with EF = 50-55%, and an inferior vena cava mildly dilatated otherwise benign. #Bronchopneumonia: -Noted on CTA of the chest in the RLL -CTA read specifically noted this does not appear consistent with a Pulmonary infarct from his new PE's -Does have a mild leukocytosis -S/P one dose of Ceftriaxone in the ED and Unasyn on admission. -MRSA nasal swab negative -Will transition to Augmentin 875 BID for 7 days. -Incentive spirometry, flutter therapy, -Slight elevation of leukocytosis on CBC today. Repeat labs in the a.m. #Left hip pain -Patient has been experiencing left hip pain since his fall out of bed 48 hours ago -Has been able to ambulate per -xray of the left hip/pelvis negative -PT/OT ordered, recommend SNF #Dementia -Pleasantly confused, easy to redirect -Will star aspiration and fall precautions with bed alarm #Bilateral inguinal hernia -With Dr. Suggs on 02/28/24 -Surgical sites appear to be healing well without dehiscence or infection Admission and Anticipated Discharge Date Admission Date: March 05, 2024 Supervising Physician Co-Signing Physician Notes Attending attestation Pt seen and examined in concert with Dr. Guzman. In agreement with the documented findings as noted in the resident documentation with any exceptions or additions as noted here. Confusion and delirium with risk of self-harm prompting soft restraints. Family at bedside. No obtainable history from patient. On examination, S1/S2 nl RRR no MCG. CTAB. Abd NT/ND BS+ve Pulmonary embolism - tolerating DOAC Pneumonia on imaging, leukocytosis - low threshold to broaden abx coverage with developing fever, tachy, O2 requirement. Continue augmentin at this time. Delirium atop dementia - encourage sleep consolidation and reorientation by family at bedside and 1:1 if needed. Else see resident documentation as noted. Subjective Patient seen bedside this morning. Overnight having some issues with agitation and restlessness. Currently resting well in bed at time of exam. Review of Systems Review of Systems: All systems reviewed & are unremarkable except as noted in Subjective Physical Exam Physical Exam: General: In no acute distress, HEENT: Normocephalic, atraumatic, no scleral icterus, pupils around round, symmetrical, and reactive to light, moist mucus membranes, trachea midline, no thyromegaly Lungs: No respiratory distress, symmetrical chest expansion, clear breath sounds throughout Cardiac: RRR, no murmurs noted Abdomen: Negative for ascites and bruising, scars appears well healed, normoactive bowel sounds, soft, non-tender to palpation throughout Musculoskeletal: Symmetrical and without signs of acute trauma, upper and lower extremities with full ROM, no atrophy, spasticity, or flaccidity Extremities: Radial, dorsalis pedis, and posterior tibial pulses are intact and symmetrical, no edema noted in the BL LE's Skin: Warm, dry, no rashes , lesions, or scars noted Neuro: Alert and oriented to person only, pleasantly confused, no focal defects, no tremors noted Psych: No acute distress, calm and cooperative during the exam Results & Data Results & Data Vital Signs (Past 12 Hours) Vital Signs Temp Pulse Pulse Resp BP Pulse Ox O2 Del Method 03/07/24 15:35 37.5 C 83 18 134/86 94 Room Air 03/07/24 07:38 37.3 C 96 H 18 176/100 H 94 Room Air 03/07/24 06:24 109 H 03/07/24 04:47 101 H 20 174/106 H 96 Room Air
[2024-03-07 16:27] LABS: ANTI-Xa, UFH(UnfractionatedHep > 1.50 IU/ml (0.3-0.7)
[2024-03-08 04:42] LABS: BUN Creatinine Ratio 22.3 (10-20); Calcium 9.7 mg/dl (8.6-10.3); Creatinine Clr Calc Pharmacy 45.1 ml/min; Est GFR (African American) 81.4 ml/min; Est GFR (Non-African American) 70.2 ml/min; Potassium 3.9 mmol/L (3.5-5.1)
[2024-03-08 05:10] LABS: Basophils % (auto) 0.6 %; Eosinophils # (auto) 0.12 K/uL (0.00-0.50); Eosinophils % (auto) 0.8 %; Hematocrit (blood only) 44.1 % (42.0-52.0); Immature Granulocytes % (auto) 0.6 %; Lymphocytes # (auto) 1.94 K/uL (1.20-3.40); Lymphocytes % (auto) 12.4 %; Mean Corpuscular Hemoglobin 30.7 pg (25.0-34.0); Mean Corpuscular Volume 90.4 fL (80.0-100.0); Mean Platelet Volume 9.1 fL (9.4-12.4); Monocytes # (auto) 1.09 K/uL (0.11-0.59); Neutrophils # (auto) 12.26 K/uL (1.40-6.50); Neutrophils % (auto) 78.6 %; Platelet Count 368 K/uL (130-400); RDW Coefficient of Variation 12.4 % (11.5-14.5); Red Blood Count 4.88 M/uL (4.70-6.10); White Blood Count 15.61 K/ul (4.8-10.8)
--- NOTE | 2024-03-08 07:35 | Hospitalist Progress Note ---
Date of Service March 08, 2024 Assessment & Plan (1) Pulmonary emboli: (2) Bronchopneumonia: (3) LECHUGA (dyspnea on exertion): (4) Left hip pain: (5) Dementia: (6) Bilateral inguinal hernia: Plan #Pulmonary emboli -Currently hemodynamically stable, stable on RA, and non-toxic appearing -High sen trop and BNP are WNL -CTA of the chest shows new, small segmental and subsegmental pulmonary emboli within the right lung -Would consider this provoked as he had BL hernia repair on 02/28/24 -Discussed with Dr. Suggs at time of admission --> no contraindications to anticoagulation. -Started on heparin drip --> transitioned to Eliquis on 03/06. Eliquis 10mg BID for 7 days, then 5mg BID. -BL Venous doppler of the LE's negative -TTE with EF = 50-55%, and an inferior vena cava mildly dilatated otherwise benign. #Bronchopneumonia: -Noted on CTA of the chest in the RLL, does not appear consistent with a Pulmonary infarct from his new PE's -Does have a mild leukocytosis -S/P one dose of Ceftriaxone in the ED and Unasyn on admission. transitioned to Augmentin 875 BID for 7 days. -MRSA nasal swab negative -Incentive spirometry, flutter therapy #Left hip pain -Patient has been experiencing left hip pain since his fall out of bed 48 hours ago -Has been able to ambulate per -xray of the left hip/pelvis negative -PT/OT ordered, recommend SNF #Dementia -Pleasantly confused, easy to redirect -Will start aspiration and fall precautions with bed alarm #Bilateral inguinal hernia -With Dr. Suggs on 02/28/24 -Surgical sites appear to be healing well without dehiscence or infection Admission and Anticipated Discharge Date Admission Date: March 05, 2024 Supervising Physician Co-Signing Physician Notes ATTESTATION I also saw the patient and confirmed bailey portions of the history and exam. I agree with the impression and plan in the resident documentation, and as summarized below. Upon our mid afternoon exam, the patient lying supine in bed. is at bedside. She reports that he was agitated earlier this afternoon, but has se ttled down since. Upon my exam, he is confused with some nonsensical speech. EXAM 140/95, 94, 16, 36.5, 97% on room air He is awake/confused Heart distant, regular rate and rhythm Respirations are nonlabored DATA Labs WBC 15.61, hemoglobin 15 Sodium 142, potassium 3.9, BUN 23, creatinine 1.03 Impression and Plan Pulmonary embolism Pneumonia on imaging, leukocytosis Continue apixaban Afebrile, adequate oxygenation on room air, continue Augmentin Dementia/acute delirium Reorientation/conservative measures Please see resident documentation for additional Subjective Patient seen at bedside, calm comfortable . present gives history, patient unable to answer most questions. Physical Exam Constitutional: WD/WN, vitals as above + frail appearing Eyes: PERRL, conjunctivae normal, anicteric sclerae ENMT: external ear and nose normal, oropharynx normal Respiratory: normal respiratory effort, lungs clear to auscultation Cardiovascular: Rate/Rhythm: regular rate and regular rhythm Skin: no rashes, warm and dry Results & Data Results & Data Vital Signs (Past 12 Hours) Vital Signs Temp Pulse Pulse Resp BP Pulse Ox O2 Del Method 03/08/24 04:11 36.5 C 96 H 18 142/93 H 95 Room Air 03/07/24 23:35 37.5 C 97 H 16 128/96 91 Room Air 03/07/24 22:05 103 H 03/07/24 19:54 37 C 98 H 18 118/81 94 Room Air 03/07/24 19:52 Room Air Resident Activity Tracking Resident Involvement: Resident Care Provided Care Provided: Adult Hospital Medicine
[2024-03-08] MEDS: MELATONIN 3 MG TAB PO PRN (20:01)
--- NOTE | 2024-03-09 14:34 | Hospitalist Progress Note ---
Date of Service March 09, 2024 Assessment & Plan (1) Pulmonary emboli: (2) Bronchopneumonia: (3) LECHUGA (dyspnea on exertion): (4) Left hip pain: (5) Dementia: (6) Bilateral inguinal hernia: Plan #Pulmonary emboli -Currently hemodynamically stable, stable on RA, and non-toxic appearing -High sen trop and BNP are WNL -CTA of the chest shows new, small segmental and subsegmental pulmonary emboli within the right lung -Would consider this provoked as he had BL hernia repair on 02/28/24 -Discussed with Dr. Suggs at time of admission --> no contraindications to anticoagulation. -Started on heparin drip --> transitioned to Eliquis on 03/06. Eliquis 10mg BID for 7 days, then 5mg BID. -BL Venous doppler of the LE's negative -TTE with EF = 50-55%, and an inferior vena cava mildly dilatated otherwise benign. #Bronchopneumonia: -Noted on CTA of the chest in the RLL, does not appear consistent with a Pulmonary infarct from his new PE's -Does have a mild leukocytosis -S/P one dose of Ceftriaxone in the ED and Unasyn on admission. transitioned to Augmentin 875 BID for 7 days. -MRSA nasal swab negative -Incentive spirometry, flutter therapy #Left hip pain -Patient has been experiencing left hip pain since his fall out of bed 48 hours ago -Has been able to ambulate per -xray of the left hip/pelvis negative -PT/OT ordered, recommend SNF #Dementia -Pleasantly confused, easy to redirect -Continue aspiration and fall precautions with bed alarm #Bilateral inguinal hernia -With Dr. Suggs on 02/28/24 -Surgical sites appear to be healing well without dehiscence or infection Disposition: Medically stable, awaiting placement DVT prophylaxis: Eliquis Diet: Heart healthy easy to chew CODE STATUS: Full code Admission and Anticipated Discharge Date Admission Date: March 05, 2024 Supervising Physician Co-Signing Physician Notes ATTESTATION I also saw the patient and confirmed bailey portions of the history and exam. I agree with the impression and plan in the resident documentation, and as summarized below. He was moved rooms overnight. This morning, he is semireclined in bed. He is not agitated. He is awake and alert. is at bedside EXAM 160/104, 84, 16, 36.7, 92% on room air Heart distant, regular rate and rhythm Respirations are nonlabored DATA Labs No new lab work Impression and Plan Pulmonary embolism Pneumonia on imaging, leukocytosis Continue apixaban Afebrile, adequate oxygenation on room air, continue Augmentin Dementia/acute delirium Reorientation/conservative measures Please see resident documentation for additional Subjective Patient seen at bedside this morning. No acute events reported overnight. is present in the room with patient. No new concerns voiced today. Review of Systems Review of Systems: All systems reviewed & are unremarkable except as noted in HPI & below Physical Exam Constitutional: WD/WN, vitals as above + frail appearing Eyes: PERRL, conjunctivae normal, anicteric sclerae ENMT: external ear and nose normal, oropharynx normal Respiratory: normal respiratory effort, lungs clear to auscultation Cardiovascular: Rate/Rhythm: regular rate and regular rhythm Skin: no rashes, warm and dry Results & Data Results & Data Vital Signs (Past 12 Hours) Vital Signs Temp Pulse Resp BP Pulse Ox O2 Del Method 03/09/24 07:24 36.7 C 84 16 160/104 H 96 Room Air
[2024-03-10 06:34] LABS: Hematocrit (blood only) 43.1 % (42.0-52.0); Hemoglobin 14.7 g/dl (14.0-18.0); Mean Corpuscular Hemoglobin 30.7 pg (25.0-34.0); Mean Corpuscular Hgb Conc 34.1 g/dL (32.0-36.0); Mean Platelet Volume 9.1 fL (9.4-12.4); Platelet Count 381 K/uL (130-400); RDW Coefficient of Variation 12.5 % (11.5-14.5); RDW Standard Deviation 41.5 fL (36.4-46.3); Red Blood Count 4.79 M/uL (4.70-6.10); White Blood Count 11.57 K/ul (4.8-10.8)
[2024-03-10 06:51] LABS: BUN Creatinine Ratio 32.4 (10-20); Calcium 9.7 mg/dl (8.6-10.3); Est GFR (African American) 76.9 ml/min; Est GFR (Non-African American) 66.3 ml/min
--- NOTE | 2024-03-10 15:03 | Hospitalist Progress Note ---
Date of Service March 10, 2024 Assessment & Plan (1) Pulmonary emboli: (2) Bronchopneumonia: (3) LECHUGA (dyspnea on exertion): (4) Left hip pain: (5) Dementia: (6) Bilateral inguinal hernia: Plan #Pulmonary emboli -Currently hemodynamically stable, stable on RA, and non-toxic appearing -High sen trop and BNP are WNL -CTA of the chest shows new, small segmental and subsegmental pulmonary emboli within the right lung -Would consider this provoked as he had BL hernia repair on 02/28/24 -Discussed with Dr. Suggs at time of admission --> no contraindications to anticoagulation. -Started on heparin drip --> transitioned to Eliquis on 03/06. Eliquis 10mg BID for 7 days, then 5mg BID. -BL Venous doppler of the LE's negative -TTE with EF = 50-55%, and an inferior vena cava mildly dilatated otherwise benign. #Bronchopneumonia: -Noted on CTA of the chest in the RLL, does not appear consistent with a Pulmonary infarct from his new PE's -Does have a mild leukocytosis -S/P one dose of Ceftriaxone in the ED and Unasyn on admission. transitioned to Augmentin 875 BID for 7 days. -MRSA nasal swab negative -Incentive spirometry, flutter therapy #Left hip pain -Patient has been experiencing left hip pain since his fall out of bed 48 hours ago -Has been able to ambulate per -xray of the left hip/pelvis negative -PT/OT ordered, recommend SNF #Dementia -Pleasantly confused, easy to redirect -Continue aspiration and fall precautions with bed alarm #Bilateral inguinal hernia -With Dr. Suggs on 02/28/24 -Surgical sites appear to be healing well without dehiscence or infection Disposition: Medically stable, awaiting placement DVT prophylaxis: Eliquis Diet: Heart healthy easy to chew CODE STATUS: Full code Admission and Anticipated Discharge Date Admission Date: March 05, 2024 Supervising Physician Co-Signing Physician Notes ATTESTATION I also saw the patient and confirmed bailey portions of the history and exam. I agree with the impression and plan in the resident documentation, and as summarized below. He is awake and somewhat talkative this morning. is at bedside. No distress appreciated. Denies complaints. EXAM Vital signs stable Heart distant, regular rate and rhythm Respirations are nonlabored DATA Labs White blood cell count 11.57, hemoglobin 14.7 Sodium 143, potassium 4.0, BUN 35, creatinine 1.08 Impression and Plan Pulmonary embolism Pneumonia on imaging, leukocytosis, improving Continue apixaban Afebrile, adequate oxygenation on room air, continue Augmentin Dementia/acute delirium Improved this morning but varies hour to hour Reorientation/conservative measures Please see resident documentation for additional Subjective Patient seen at bedside this morning. No acute events reported overnight. is present in the room with patient. Seems more awake today than yesterday and had a good night sleep. No new concerns voiced today. Review of Systems Review of Systems: All systems reviewed & are unremarkable except as noted in HPI & below Physical Exam Constitutional: WD/WN, vitals as above + frail appearing Eyes: PERRL, conjunctivae normal, anicteric sclerae ENMT: external ear and nose normal, oropharynx normal Respiratory: normal respiratory effort, lungs clear to auscultation Cardiovascular: Rate/Rhythm: regular rate and regular rhythm Skin: no rashes, warm and dry Results & Data Results & Data Vital Signs (Past 12 Hours) Vital Signs Temp Pulse Resp BP Pulse Ox O2 Del Method 03/10/24 14:43 36.7 C 80 16 125/88 95 Room Air 03/10/24 07:16 37.0 C 92 H 16 136/74 95 Room Air
--- NOTE | 2024-03-11 07:26 | Hospitalist Progress Note ---
Date of Service March 11, 2024 Assessment & Plan (1) Pulmonary emboli: (2) Bronchopneumonia: (3) LECHUGA (dyspnea on exertion): (4) Left hip pain: (5) Dementia: (6) Bilateral inguinal hernia: Plan Ron is a 74M with PMH of dementia, inguinal hernia s/p repair 02/27, NAION, bifascicular block and orthostasis who was admitted for Pulmonary Embolic and Pneumonia. Pulmonary emboli -Currently hemodynamically stable, stable on RA, and non-toxic appearing -High sen trop and BNP are WNL -CTA of the chest shows new, small segmental and subsegmental pulmonary emboli within the right lung -BL Venous Doppler of the LE's negative -TTE with EF = 50-55%, and an inferior vena cava mildly dilatated otherwise benign. -Would consider this provoked as he had BL hernia repair on 02/28/24 -Discussed with Dr. Suggs at time of admission --> no contraindications to anticoagulation. -Started on heparin drip --> transitioned to Eliquis on 03/06. Eliquis 10mg BID for 7 days, then 5mg BID. -TTE with EF = 50-55%, and an inferior vena cava mildly dilatated otherwise benign. Bronchopneumonia: -Noted on CTA of the chest in the RLL, not c/w pulmonary infarct related to new PEs -Does have a mild leukocytosis, downtrending 03/10 -S/P one dose of Ceftriaxone in the ED and Unasyn on admission. Transitioned to Augmentin 875 BID for 7 days. -MRSA nasal swab negative -Incentive spirometry, flutter therapy Left hip pain -Patient has been experiencing left hip pain since his fall out of bed 72 hours ago -Has not been ambulating, per -XR of the left hip/pelvis negative -PT/OT ordered, recommend SNF Dementia -Pleasantly confused, easy to redirect -Continue aspiration and fall precautions with bed alarm Bilateral inguinal hernia -With Dr. Suggs on 02/28/24 -Surgical sites appear to be healing well without dehiscence or infection - noting decreased activity since surgery Disposition: Medically stable, awaiting placement DVT prophylaxis: Eliquis Diet: Heart healthy easy to chew CODE STATUS: Full code Admission and Anticipated Discharge Date Admission Date: March 05, 2024 Supervising Physician Co-Signing Physician Notes I personally examined the patient and verified all bailey points of history and exam, discussed case, and agree with decision making with Dr Rossi no complaints, not much meaningful HPI or ROS obtainable, also denies current problems vitals noted nad heent nc at mmm breathing unlabored no accessory muscles good effort skin no rashes no pallor or icterus neuro no focal deficits Impression and Plan Pulmonary embolism Pneumonia on imaging, leukocytosis, improving Continue apixaban Afebrile, adequate oxygenation on room air, continue Augmentin appears to be improving nicely Dementia/acute delirium reassurance, reorientation, supportive care otherwise as above Subjective 03/11: Evaluated at bedside with present. No overnight events. Patient conversive but remains confused. Endorses good night sleep. No chest pain, dyspnea, fevers, chills, or headaches. Patient and have no concerns today. Pending placement. Physical Exam Physical Exam: Gen: NAD, alert, interactive HEENT: Supple, no LAD, no thyromegaly, no JVD Resp:Non-labored, no wheezing/rhonchi/rales, CTAB CV:RRR, normal S1/S2, no M/R/G Abd: Soft, non-distended, no TTP, normoactive bowels, no masses Extr: 2+ dp bilaterally, no edema Skin: No rashes lesions or erythema Results & Data Results & Data Vital Signs (Past 12 Hours) Vital Signs Temp Pulse Resp BP Pulse Ox O2 Del Method 03/11/24 07:18 36.5 C 66 18 138/88 97 Room Air 03/10/24 22:43 36.5 C 87 16 122/84 94 Room Air 03/10/24 22:40 Room Air Resident Activity Tracking Resident Involvement: Resident Care Provided Care Provided: Adult Hospital Medicine
--- NOTE | 2024-03-11 16:51 | Billing Data ---
Date of Service March 11, 2024 Coding Level of Care Code 39488 SUB INP/OBS CARE
--- NOTE | 2024-03-12 06:54 | Hospitalist Progress Note ---
Date of Service March 12, 2024 Assessment & Plan (1) Pulmonary emboli: (2) Bronchopneumonia: (3) LECHUGA (dyspnea on exertion): (4) Left hip pain: (5) Dementia: (6) Bilateral inguinal hernia: Plan Ron is a 74M with PMH of dementia, inguinal hernia s/p repair 02/27, NAION, bifascicular block and orthostasis who was admitted for Pulmonary Embolic and Pneumonia. Pulmonary emboli -Currently hemodynamically stable, stable on RA, and non-toxic appearing -High sen trop and BNP are WNL -CTA of the chest shows new, small segmental and subsegmental pulmonary emboli within the right lung -BL Venous Doppler of the LE's negative -TTE with EF = 50-55%, and an inferior vena cava mildly dilatated otherwise benign. -Would consider this provoked as he had BL hernia repair on 02/28/24 -Discussed with Dr. Suggs at time of admission --> no contraindications to anticoagulation. -Started on heparin drip --> transitioned to Eliquis on 03/06. Eliquis 10mg BID for 7 days, then 5mg BID. -TTE with EF = 50-55%, and an inferior vena cava mildly dilatated otherwise benign. Bronchopneumonia: -Noted on CTA of the chest in the RLL, not c/w pulmonary infarct related to new PEs -Does have a mild leukocytosis, downtrending 03/10 -S/P one dose of Ceftriaxone in the ED and Unasyn on admission. Transitioned to Augmentin 875 BID for 7 days. -MRSA nasal swab negative -Incentive spirometry, flutter therapy Left hip pain -Patient has been experiencing left hip pain since his fall out of bed 72 hours ago -Has not been ambulating, per -XR of the left hip/pelvis negative -PT/OT ordered, recommend SNF Dementia -Pleasantly confused, easy to redirect -Continue aspiration and fall precautions with bed alarm Bilateral inguinal hernia -With Dr. Suggs on 02/28/24 -Surgical sites appear to be healing well without dehiscence or infection - noting decreased activity since surgery Disposition: Medically stable, awaiting placement DVT prophylaxis: Eliquis Diet: Heart healthy easy to chew CODE STATUS: Full code Admission and Anticipated Discharge Date Admission Date: March 05, 2024 Subjective 03/11: Evaluated at bedside with present. No overnight events. Patient conversive but remains confused. Endorses good night sleep. No chest pain, dyspnea, fevers, chills, or headaches. Patient and have no concerns today. Pending placement. 03/12: Physical Exam Physical Exam: Gen: NAD, alert, interactive HEENT: Supple, no LAD, no thyromegaly, no JVD Resp:Non-labored, no wheezing/rhonchi/rales, CTAB CV:RRR, normal S1/S2, no M/R/G Abd: Soft, non-distended, no TTP, normoactive bowels, no masses Extr: 2+ dp bilaterally, no edema Skin: No rashes lesions or erythema Results & Data Results & Data Vital Signs (Past 12 Hours) Vital Signs Temp Pulse Resp BP Pulse Ox O2 Del Method 03/12/24 04:38 153/91 H 03/11/24 20:25 36.5 C 77 18 172/94 H 97 Room Air 03/11/24 20:15 Room Air
--- NOTE | 2024-03-12 18:31 | Discharge Summary ---
Discharge Summary Date of Service March 12, 2024 Notes For Next Care Provider Medication Changes From Visit Started Eliquis, finished course of Augmentin, held aspirin Principal Dx & Hospital Course #1 = Principal Diagnosis (1) Pulmonary emboli: (2) Bronchopneumonia: (3) LECHUGA (dyspnea on exertion): (4) Left hip pain: (5) Dementia: (6) Bilateral inguinal hernia: Aquiles Velasquez is a 74M with PMH of dementia, inguinal hernia s/p repair 02/27, NAION, bifascicular block and orthostasis who was admitted for Pulmonary Embolic and Pneumonia. Pulmonary emboli -Hemodynamically stable, started on Eliquishas 2 more days of 10 mg twice daily, then 5 mg twice daily. Given that he had a recent surgery, could consider this major provoking factors, and treat for 3-6 months. Bronchopneumonia: -Noted on CTA of the chest in the RLL, not c/w pulmonary infarct related to new PEs -did have a mild leukocytosis, downtrending 03/10 -Improving on Augmentin Left hip pain -Patient has been experiencing left hip pain since his fall out of bed 72 hours ago -Has not been ambulating, per -XR of the left hip/pelvis negative -PT/OT ordered, ongoing PT/OT at SNF Dementia -Pleasantly confused, easy to redirect -Continue aspiration and fall precautions with bed alarm Bilateral inguinal hernia -With Dr. Suggs on 02/28/24 -Surgical sites appear to be healing well without dehiscence or infection - noting decreased activity since surgery For SNF/rehab emphasis today Discharge Exam Awake and alert, disoriented mildly restless but easily redirectable. No distress. HEENT normocephalic atraumatic mucous membranes moist. Breathing unlabored no accessory muscle use good effort. Skin shows no rashes no pallor or icterus. Neuro without focal deficits. Updated Medication List Medication Instructions Recorded Confirmed Type Lactobacillus acidophilus and 1 cap PO HS 04/21/22 03/05/24 History rhamnosus 15 billion cell capsule (Probiotic) amoxicillin 875 mg-potassium 1 tab PO BIDM #4 tabs 03/12/24 Rx clavulanate 125 mg tablet apixaban 5 mg tablet 5 mg PO BID #30 tabs 03/12/24 Rx apixaban 5 mg tablet (Eliquis) 10 mg (2 x 5 mg) PO BID #4 tabs 03/12/24 Rx docusate sodium 100 mg capsule 100 mg PO BID #30 caps 03/12/24 Rx melatonin 3 mg tablet 3 mg PO HS PRN sleep #30 tabs 03/12/24 Rx Hospital Stay Data Consultations 03/05/24 14:48 ED Decision to Admit Stat Diagnostic Imagining Performed 03/05/24 13:32 CT for pulmonary embolism PE [CT angio chest PE protocol] Stat 03/05/24 15:44 US venous doppler LE BI Urgent Pending Results Patient Have Any Pending Studies at Discharge: No Discharge Instructions Given to Patient (Per Discharging Provider) PE - has had 5 days eliquis 10mg bid, would continue for 4 more doses, then switch to eliquis 5mg po bid pneumonia - interestingly appeared like pneumonia (and different from the expected pulmonary infarcts) - responded nicely to augmentin - would treat for 4 more doses of this as well has had a bit of orthostatic lightheadedness - likely multifactorial, vitals have been stable (if anything somewhat hypertensive) - so would start with encouraging PO intake, slow position changes, and ambulation with supervision; can then back off support as he improves CBC, BMP ~2-3 days then as clinically warranted Total Time Total Time Spent Total Time Spent (In Minutes): Less than 30
--- NOTE | 2024-03-12 18:31 | Billing Data ---
Date of Service March 12, 2024 Coding Level of Care Code 65219 IN/OBS DISCH 30 MIN/LESS
[2024-03-13] MEDS ORDERED: APIXABAN 5 MG TABLET PO SCH (09:00)
== END 2024-03-12 14:26 | DRG 299 ==
LOC: ED 11:34 → SUATTDRO 15:19 → EDINP 15:19 → 2W 17:53 → 3E 03-08 22:58
DX: J18.0 Bronchopneumonia, unspecified organism; Z88.6 Allergy status to analgesic agent; M25.552 Pain in left hip; Z79.82 Long term (current) use of aspirin; I26.94 Multiple subsegmental thrombotic pulmonary emboli without acute cor pulmonale; Y83.8 Other surgical procedures as the cause of abnormal reaction of the patient, or of later complication, without mention of misadventure at the time of the procedure; T81.718A Complication of other artery following a procedure, not elsewhere classified, initial encounter; Z88.8 Allergy status to other drugs, medicaments and biological substances; W06.XXXA Fall from bed, initial encounter

== ENCOUNTER 2024-11-15 08:48 | Inpatient (IN) ==
--- NOTE | 2024-11-15 09:10 | Emergency Department Note ---
Impression & Plan Shortness of breath, HTN (hypertension) ED Provider Note NAME: RANJAN RIVERA AGE: 74 SEX: M : 1950 ARRIVES VIA: Walk-In INFORMANT: Patient ED PROVIDER(S): Omar Levy DO CHIEF COMPLAINT: shortness of breath HPI: Patient is a 74-year-old male who presents to the ER for shortness of breath. He notes this started this past Monday. Denies any headache or change in vision. No chest pain. No dysuria, urgency, or frequency. Does have a little bit of runny nose but has been unchanged. Does have a history of previous PEs and has been off anticoagulation for several months per the recommendation of . He denies all other complaints but is pleasantly demented per who is present at bedside who provides the majority the history. ADDITIONAL HISTORY OBTAINED: Per HPI Chronic Medical/Social Conditions Affecting Care: Per HPI PAST MEDICAL HISTORY:See Below PAST SURGICAL HISTORY:See Below FAMILY HISTORY:See Below SOCIAL HISTORY:See Below HOME MEDICATIONS:See Below ALLERGIES:See Below VITALS:See Below PHYSICAL EXAMINATION: GENERAL: Sitting up in bed, alert, well appearing, well nourished, no distress, non-toxic EYE EXAM: normal conjunctiva. PERRL and EOM's grossly intact. OROPHARYNX: mucous membranes are moist NECK: supple, no nuchal rigidity, no adenopathy, non-tender LUNGS: Clear to auscultation. Normal chest wall mechanics HEART: no murmurs, S1 normal and S2 normal ABDOMEN: abdomen soft, non-tender, normo-active bowel sounds, no masses, no rebound or guarding. BACK: Back is symmetrical on inspection and there is no deformity, no midline tenderness, no CVA tenderness. SKIN: no rashes and no bruising UPPER EXTREMITIES: upper extremities are grossly normal. LOWER EXTREMITIES: Pitting edema in the lower extremities NEURO EXAM: Normal sensorium, cranial nerves II-XII grossly intact, normal speech, no gross weakness of arms, no gross weakness of legs. MEDICAL DECISION MAKING: Patient is a 74-year-old male who presents ER for the above-stated complaint. Upon arrival he is found to be hypotensive with systolic pressures of 80s and a heart rate in the 130s. This was in triage. He was transition to the room and by the time he was placed on the monitor this broke. Labs showed no significant leukocytosis or anemia. BMP with slightly elevated chloride. LFTs bilirubin were unremarkable. Troponin was negative. We still does admit to some's mild shortness of breath and consequently CT angio the chest was obtained and showed no new clots. He was discussed with the hospitalist for further evaluation management treatment and monitoring due to the tachyarrhythmia which was not caught while in triage. Consults/Care Managements Discussions: Per MDM Triage Nursing notes reviewed. Limited review of prior medical records performed Vital Signs: reviewed and remarkable for htn Differential diagnosis: Cardiac ischemia, aortic dissection, pulmonary embolism, pneumothorax, pneumonia, pericarditis, myocarditis, esophageal rupture, GERD, cholecystitis, pancreatitis, musculoskeletal, as well as other pathologies. ER treatment provided: See below Diagnostics interpreted by me include EKG and cardiac monitoring as listed below: -Cardiac Monitoring: An order was placed for continuous cardiac monitoring. The monitor shows a rate of 80 with sinus rhythm. -ECG: Sinus rhythm rate 73 Normal axis Right bundle branch block QTc 449 -Laboratory studies:Interpreted by me as stated above in MDM and shown below. Imaging studies: Xrays: As interpreted by me: Portable AP upright 1 view of the chest shows no focal infiltrate CTs show: CT angio the chest was negative per radiology Procedures:none Critical Care: None Past Med/Surg History Problem List (Updated 11/15/24 @ 13:25 by Omar Levy DO) HTN (hypertension) (Acute) Shortness of breath (Acute) Left hip pain Bronchopneumonia (Acute) Pulmonary emboli (Acute) LECHUGA (dyspnea on exertion) (Acute) Encounter for pre-operative examination Dementia Bilateral inguinal hernia History of exertional chest pain LECHUGA (dyspnea on exertion) NAION (non-arteritic anterior ischemic optic neuropathy) Bifascicular block Orthostasis Medical History History of COVID-19 2 yr ago / 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 hx balance problem/now resolved. 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 Reading disability, developmental Reading comprehension disorder Fear of needles Dementia beginning stages/follows pcp SOB (shortness of breath) on exertion mild with daily activity and stairs. Bifascicular block 2 yr ago/Dr. Hu History of hypertension Surgical History H/O bilateral inguinal hernia repair (02/28/24) Robotic Assisted Bilateral Laparoscopic Inguinal Hernia Repair(Bilateral) - Francisco Suggs DO, [place] History of colonoscopy H/O wisdom tooth extraction Family History Mother Hypertension Myocardial infarction Diabetes Father Myocardial infarction Hypertension Grandfather (Maternal) Myocardial infarction Hypertension Social History Smoking Status: Never smoker Second Hand Exposure: No; Do You Dip or Chew Tobacco: No; Hx Alcohol Use: No Hx Substance Use: No Preferred Language: Chinese Communication Ability: Effective Communication Ability Comment: pt has beg stages dementia/ helps with interview/pt comm is effective 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 Beliefs That Will Affect Care: None marital status: Current Living Situation: Spouse Current Living Situation Comment: home with Ankita current occupational status: retired How many Children do You have: 2 Feels Safe at Home: Yes Diet: regular during the past year weight has: decreased > 10 lbs Assistive Devices: None Allergies Allergies Allergy/AdvReac Type Severity Reaction Status Date / Time acetaminophen [From Tylenol] Allergy Unknown Shortness Verified 11/15/24 11:38 of breath, rash diphenhydramine Allergy Unknown Rash Verified 11/15/24 11:38 [From Benadryl] ibuprofen [From Advil] Allergy Unknown Rash Verified 11/15/24 11:38 NSAIDS (Non-Steroidal Allergy Unknown Rash Verified 11/15/24 11:38 Anti-Inflamma Home Meds Home Medications Medication Instructions Recorded Confirmed No Known Home Medications 11/15/24 11/15/24 Results & Data (ED) Vital Signs Vital Signs - 24 hr 11/15/24 08:49 11/15/24 09:02 11/15/24 09:04 Temperature 36.6 C Temperature Source Temporal Artery Scan Pulse Rate 124 H 69 Pulse Rate [Apical] Pulse Rate from SpO2 Sensor Respiratory Rate 18 Respiratory Effort / Characteristics Respiratory Depth Respiratory Pattern Blood Pressure 88/64 L 162/125 H Blood Pressure [Right Arm] Blood Pressure Mean 72 137 Blood Pressure Mean [Right Arm] Blood Pressure Position [Right Arm] Pulse Oximetry 94 Oxygen Delivery Method Oxygen Flow Rate Sepsis Recent Fever Within 48 Hours No Sepsis New/Unexplained Change in Mental Status N/A Sepsis Action Taken by Nursing Physician Notified 11/15/24 09:09 11/15/24 09:09 11/15/24 09:15 Temperature Temperature Source Pulse Rate 72 Pulse Rate [Apical] Pulse Rate from SpO2 Sensor 69 Respiratory Rate 18 Respiratory Effort / Characteristics Respiratory Depth Respiratory Pattern Blood Pressure Blood Pressure [Right Arm] Blood Pressure Mean Blood Pressure Mean [Right Arm] Blood Pressure Position [Right Arm] Pulse Oximetry 98 98 98 Oxygen Delivery Method Room Air Room Air Oxygen Flow Rate 0 Sepsis Recent Fever Within 48 Hours Sepsis New/Unexplained Change in Mental Status Sepsis Action Taken by Nursing 11/15/24 09:21 11/15/24 09:27 11/15/24 09:30 Temperature Temperature Source Pulse Rate 74 71 Pulse Rate [Apical] Pulse Rate from SpO2 Sensor 73 71 Respiratory Rate 18 15 Respiratory Effort / Characteristics Respiratory Depth Respiratory Pattern Blood Pressure 155/99 H Blood Pressure [Right Arm] Blood Pressure Mean 115 Blood Pressure Mean [Right Arm] Blood Pressure Position [Right Arm] Pulse Oximetry 98 97 Oxygen Delivery Method Oxygen Flow Rate Sepsis Recent Fever Within 48 Hours Sepsis New/Unexplained Change in Mental Status Sepsis Action Taken by Nursing 11/15/24 09:30 11/15/24 09:36 11/15/24 10:00 Temperature Temperature Source Pulse Rate 76 Pulse Rate [Apical] Pulse Rate from SpO2 Sensor 76 Respiratory Rate 21 Respiratory Effort / Characteristics Respiratory Depth Respiratory Pattern Blood Pressure 155/99 H 151/93 H Blood Pressure [Right Arm] Blood Pressure Mean 115 111 Blood Pressure Mean [Right Arm] Blood Pressure Position [Right Arm] Pulse Oximetry 97 Oxygen Delivery Method Oxygen Flow Rate Sepsis Recent Fever Within 48 Hours Sepsis New/Unexplained Change in Mental Status Sepsis Action Taken by Nursing 11/15/24 10:00 11/15/24 10:00 11/15/24 10:00 Temperature Temperature Source Pulse Rate 74 Pulse Rate [Apical] Pulse Rate from SpO2 Sensor 76 Respiratory Rate 24 Respiratory Effort / Characteristics Respiratory Depth Respiratory Pattern Blood Pressure 151/93 H 151/93 H Blood Pressure [Right Arm] Blood Pressure Mean 111 111 Blood Pressure Mean [Right Arm] Blood Pressure Position [Right Arm] Pulse Oximetry 97 Oxygen Delivery Method Oxygen Flow Rate Sepsis Recent Fever Within 48 Hours Sepsis New/Unexplained Change in Mental Status Sepsis Action Taken by Nursing 11/15/24 10:18 11/15/24 10:30 11/15/24 10:30 Temperature Temperature Source Pulse Rate 74 Pulse Rate [Apical] Pulse Rate from SpO2 Sensor 73 Respiratory Rate 20 Respiratory Effort / Characteristics Respiratory Depth Respiratory Pattern Blood Pressure 167/103 H 167/103 H Blood Pressure [Right Arm] Blood Pressure Mean 118 118 Blood Pressure Mean [Right Arm] Blood Pressure Position [Right Arm] Pulse Oximetry 97 Oxygen Delivery Method Oxygen Flow Rate Sepsis Recent Fever Within 48 Hours Sepsis New/Unexplained Change in Mental Status Sepsis Action Taken by Nursing 11/15/24 10:33 11/15/24 11:19 Temperature 36.6 C Temperature Source Oral Pulse Rate 79 Pulse Rate [Apical] 81 Pulse Rate from SpO2 Sensor 78 Respiratory Rate 30 H 22 Respiratory Effort / Characteristics Non-Labored Spontaneous Respiratory Depth Normal Respiratory Pattern Regular Blood Pressure Blood Pressure [Right Arm] 161/110 H Blood Pressure Mean Blood Pressure Mean [Right Arm] 127 Blood Pressure Position [Right Arm] Semi-fowlers Pulse Oximetry 97 97 Oxygen Delivery Method Room Air Oxygen Flow Rate Sepsis Recent Fever Within 48 Hours Sepsis New/Unexplained Change in Mental Status Sepsis Action Taken by Nursing Laboratory Data 11/15/24 09:04 11/15/24 09:04 Lab Results 11/15/24 Range/Units 09:04 WBC 10.17 (4.8-10.8) K/ul RBC 4.96 (4.70-6.10) M/uL Hgb 15.5 (14.0-18.0) g/dl Hct 45.5 (42.0-52.0) % MCV 91.7 (80.0-100.0) fL MCH 31.3 (25.0-34.0) pg MCHC 34.1 (32.0-36.0) g/dL RDW Std Deviation 44.6 (36.4-46.3) fL RDW Coeff of Bailey 13.2 (11.5-14.5) % Plt Count 300 (130-400) K/uL MPV 9.1 L (9.4-12.4) fL Immature Gran % (Auto) 0.4 % Neut % (Auto) 67.8 % Lymph % (Auto) 22.0 % [place] % (Auto) 7.6 % Eos % (Auto) 1.2 % Baso % (Auto) 1.0 % Neut # (Auto) 6.90 H (1.40-6.50) K/uL Lymph # (Auto) 2.24 (1.20-3.40) K/uL [place] # (Auto) 0.77 H (0.11-0.59) K/uL Eos # (Auto) 0.12 (0.00-0.50) K/uL Baso # (Auto) 0.10 (0.00-0.20) K/uL Immature Gran # (Auto) 0.04 (0.01-0.20) K/uL Sodium 145 (136-145) mmol/L Potassium 4.4 (3.5-5.1) mmol/L Chloride 108 H (98-107) mmol/L Carbon Dioxide 32 (21-32) mmol/L Anion Gap 5 (3-11) BUN 28 H (6-23) mg/dl Creatinine 1.26 (0.6-1.4) mg/dl Est Cr Clr Drug Dosing 44.4 ml/min eGFR 59.11 BUN/Creatinine Ratio 22.2 H (10-20) Glucose 93 (70-99(Fasting)) mg/dl Calcium 9.5 (8.6-10.3) mg/dl Total Bilirubin 1.3 H (0.2-1.0) mg/dl AST 15 (13-39) U/L ALT 9 (7-52) U/L Alkaline Phosphatase 74 (34-104) U/L Troponin I High Sens 10.5 (0-20) pg/ml Total Protein 7.2 (6.0-8.3) gm/dl Albumin 4.2 (3.4-5.0) gm/dl Globulin 3.0 (2.5-4.0) gm/dl Albumin/Globulin Ratio 1.4 (0.9-2) Lipase 13 (11-82) U/L Imaging Data Radiologist's Impression: Chest X-Ray 11/15/24 09:05 XR chest 1V portable HISTORY: 74 years-old Male Chest pain, nonspecific COMPARISON: 03/05/2024 TECHNIQUE: AP view of the chest FINDINGS: Cardiomediastinal and hilar silhouettes are within normal limits. Chronic interstitial coarsening. No pneumothorax, pleural effusion, airspace consolidation or pulmonary edema. Bones appear grossly intact. IMPRESSION: No acute process. ACT 112: Negative or not required by law. The above report was generated using voice recognition software. It may contain grammatical, syntax or spelling errors. Electronically signed by: Dayo Rios M.D. 11/15/2024 10:14 AM Chest CTA 11/15/24 10:30 CT angio chest PE protocol CT DOSE: 496.05 mGy.cm HISTORY: 74 years-old Male with PE. Acute shortness of breath TECHNIQUE: Multiple CTA images of the chest were obtained after the intravenous administration of 119 ml Optiray. Coronal and sagittal MIPS were obtained from the axial data set and were submitted for review. All measurements were obtained according to NASCET criteria. A dose lowering technique was utilized adhering to the principles of ALARA. COMPARISON: CTA chest 03/05/2024 FINDINGS: CTA: Cardiomegaly without pericardial effusion. Moderate to extensive coronary artery calcifications. No thoracic aortic aneurysm or dissection. Demonstration of a few small segmental/subsegmental pulmonary emboli within the right lung, similar to prior. No new pulmonary emboli identified. CT CHEST: Unremarkable thyroid. No lymphadenopathy. No pneumothorax, pleural effusion or airspace consolidation. Resolution of the previously described pulmonary opacities. There is mild subsegmental bibasilar atelectasis. Central airways are patent. Pectus excavatum. Left retrocrural calcifications are again noted. Unremarkable soft tissues. No acute fracture is seen. IMPRESSION: 1. Small chronic segmental/subsegmental pulmonary emboli of the right lower lobe, unchanged from 03/05/2024 2. No pleural effusion or airspace consolidation. ACT 112: Negative or not required by law. The above report was generated using voice recognition software. It may contain grammatical, syntax or spelling errors. Electronically signed by: Dayo Rios M.D. 11/15/2024 11:25 AM Discharge Plan Visit Data Chief Complaint: Chest Pain Stated Complaint: CHEST/HEART PAIN ED Provider: Omar Levy Discharge Problem: Shortness of breath, HTN (hypertension) Patient Disposition: Admitted As Inpatient Discharge Instructions Interventions: ED Discharge Assessment Last Done: 11/15/24 13:23 Discharge Problem: HTN (hypertension) Qualifiers: Hypertension type: unspecified Qualified Code(s): I10 - Essential (primary) hypertension
[2024-11-15 09:30] LABS: Eosinophils # (auto) 0.12 K/uL (0.00-0.50); Eosinophils % (auto) 1.2 %; Hematocrit (blood only) 45.5 % (42.0-52.0); Hemoglobin 15.5 g/dl (14.0-18.0); Immature Granulocytes # (auto) 0.04 K/uL (0.01-0.20); Immature Granulocytes % (auto) 0.4 %; Lymphocytes # (auto) 2.24 K/uL (1.20-3.40); Mean Corpuscular Hemoglobin 31.3 pg (25.0-34.0); Mean Corpuscular Hgb Conc 34.1 g/dL (32.0-36.0); Mean Corpuscular Volume 91.7 fL (80.0-100.0); Mean Platelet Volume 9.1 fL (9.4-12.4); Monocytes # (auto) 0.77 K/uL (0.11-0.59); Monocytes % (auto) 7.6 %; Neutrophils % (auto) 67.8 %; Platelet Count 300 K/uL (130-400); RDW Coefficient of Variation 13.2 % (11.5-14.5); RDW Standard Deviation 44.6 fL (36.4-46.3); Red Blood Count 4.96 M/uL (4.70-6.10); White Blood Count 10.17 K/ul (4.8-10.8)
[2024-11-15 09:42] LABS: Albumin Globulin Ratio 1.4 (0.9-2); Albumin Level 4.2 gm/dl (3.4-5.0); BUN Creatinine Ratio 22.2 (10-20); Bilirubin,Total 1.3 mg/dl (0.2-1.0); Calcium 9.5 mg/dl (8.6-10.3); Creatinine Clr Calc Pharmacy 44.4 ml/min; Potassium 4.4 mmol/L (3.5-5.1); Total Protein 7.2 gm/dl (6.0-8.3)
[2024-11-15 09:46] LABS: Troponin I High Sensitivity 10.5 pg/ml (0-20)
--- NOTE | 2024-11-15 10:17 | XRay Report ---
XR chest 1V portable HISTORY: 74 years-old Male Chest pain, nonspecific COMPARISON: 03/05/2024 TECHNIQUE: AP view of the chest FINDINGS: Cardiomediastinal and hilar silhouettes are within normal limits. Chronic interstitial coarsening. No pneumothorax, pleural effusion, airspace consolidation or pulmonary edema. Bones appear grossly inta ct. IMPRESSION: No acute process. ACT 112: Negative or not required by law. The above report was generated using voice recognition software. It may contain grammatical, syntax o r spelling errors. Electronically signed by: Dayo Rios M.D. 11/15/2024 10:14 AM
--- NOTE | 2024-11-15 11:27 | CT Scan Report ---
CT angio chest PE protocol CT DOSE: 496.05 mGy.cm HISTORY: 74 years-old Male with PE. Acute shortness of breath TECHNIQUE: Multiple CTA images of the chest were obtained after the intravenous administration of 119 ml Optiray. Coronal and sagittal MIPS were obtained from the axial data set and were submitted for review. All measurements were obtained according to NASCET criteria. A dose lowering technique was u tilized adhering to the principles of ALARA. COMPARISON: CTA chest 03/05/2024 FINDINGS: CTA: Cardiomegaly without pericardial effusion. Moderate to extensive coronary artery calcifications. No t horacic aortic aneurysm or dissection. Demonstration of a few small segmental/subsegmental pulmonary emboli within the right lung, similar to prior. No new pulmonary emboli identified. CT CHEST: Unremarkable thyroid. No lymphadenopathy. No pneumothorax, pleural effusion or airspace consolidation . Resolution of the previously described pulmonary opacities. There is mild subsegmental bibasilar at electasis. Central airways are patent. Pectus excavatum. Left retrocrural calcifications are again no tray. Unremarkable soft tissues. No acute fracture is seen. IMPRESSION: 1. Small chronic segmental/subsegmental pulmonary emboli of the right lower lobe, unchanged from 03/05 2. No pleural effusion or airspace consolidation. ACT 112: Negative or not required by law. The above report was generated using voice recognition software. It may contain grammatical, syntax o r spelling errors. Electronically signed by: Dayo Rios M.D. 11/15/2024 11:25 AM
--- NOTE | 2024-11-15 12:18 | History & Physical Report ---
Date of Service November 15, 2024 Assessment & Plan (1) Orthostasis: (2) Dementia: (3) Pulmonary emboli: Plan 74-year-old male PMHx dementia who is presenting for recent onset of chest pain and increased shortness of breath as well as dizziness with near syncope. Upon initial arrival to ED patient's heart rate was in the 120s, with a systolic blood pressure in the 80s. Upon repeat vitals he is hemodynamically stable. Workup chronic pulmonary emboli on chest CTA, but otherwise findings are grossly WNL. #Orthostasis Suspect that patient's symptoms of worsening lightheadedness/dizziness occurring mainly when going from sitting to standing or secondary to orthostasis. 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 notes worsening SOB w/ walking. - Admit med/tele - CBC w/o signs of anemia, CMP w/ BUN/Cr ratio 22.2 supportive of possible dehydration, w/o gross electrolyte abnormalities; Troponin 10.5, will continue to trend; pending Mg, TSH, and phosphate - EKG on arrival NSR w/ sinus arrhythmia, RBBB + LAFB; rate 70s; EKG daily - CXR w/o caute findings, Chest CTA revealing chronic pulmonary emboli, unchanged since 02/2024 - Echo 02/2024 -LV systolic function low normal, RV size is normal with normal function, RVSP elevated 30 to 40 mmHg, IVC mildly dilated; pending repeat echo - Orthostatic vitals pending - NSS @ 80mL/hr x 1L -Add TIMOTHY hose -With orthostasis, would avoid overtreating resting hypertension while lying down - PT/OT consults placed -Check COVID-19 test #Dementia H/o dementia at baseline, per . provides majority of history. - Allow for ancillary therapy to include increasing familiarity of setting + decrease restraints + remove lines if possible + promote good sleep- melatonin added #Pulmonary emboli, LLL, chronic Ongoing since 02/2024, completed 6 months of Eliquis + no longer taking - Chest CTA revealing pulmonary emboli; stable - Not hypoxic or SOB currently; will monitor-no need for further anticoagulation at this time Dispo: Admit to med/tele to monitor for arrhythmias; anticipate discharge next day VTE Prophylaxis: SCDs, chemical prophylaxis HELD at time of admission; add if prolonged stay This document was dictated utilizing [employer] Software. Please excuse any grammatical errors that may be secondary to use of this software. Admission and Anticipated Discharge Date Admission Date: 11/15/2024 History of Present Illness Chief Complaint: Chest pain, SOB Primary Care Provider: Pratik Shabazz MD 74-year-old male PMHx dementia presenting to ED with who helps provide history. States that the patient has been more short of breath starting 1 day prior to arrival and had an episode of chest pain that radiated to his left arm and neck. Shortness of breath was more pronounced with walking which is new for the patient. also states that the evening prior to arrival, he was getting out of the car got very dizzy and almost fell but she was able to help him. That occurred the morning of arrival as well, so she decided that she was ready to take the patient to the ER to be evaluated. States that currently he is not having any chest pain, or shortness of breath. Patient does have history of dementia, therefore history is limited. Patient denies any pain elsewhere. Has been having abnormalities bowel movement switching between constipation and diarrhea, per the due to concerns otherwise. Patient is not on any daily medications. Evaluated in ED revealed no gross abnormalities in CBC, with only abnormalities CMP being chloride 108, BUN 28, BUN/creatinine ratio 22.2. Troponin has remained within normal limits, and EKG is not suggestive of ischemia. Patient's chest CTA did reveal small chronic segmental/subsegmental pulmonary emboli in the RLL which been unchanged since February 2024. Please see Dr. Canales's attestation for adjustments/additions to treatment plan. Allergies Allergy/AdvReac Type Severity Reaction Status Date / Time acetaminophen [From Tylenol] Allergy Unknown Shortness Verified 11/15/24 11:38 of breath, rash diphenhydramine Allergy Unknown Rash Verified 11/15/24 11:38 [From Benadryl] ibuprofen [From Advil] Allergy Unknown Rash Verified 11/15/24 11:38 NSAIDS (Non-Steroidal Allergy Unknown Rash Verified 11/15/24 11:38 Anti-Inflamma Home Medications Medication Instructions Recorded Confirmed Type No Known Home Medications 11/15/24 11/15/24 History Past Med/Surg History Problem List (Updated 11/15/24 @ 13:25 by Omar Levy DO) HTN (hypertension) (Acute) Shortness of breath (Acute) Left hip pain Bronchopneumonia (Acute) Pulmonary emboli (Acute) LECHUGA (dyspnea on exertion) (Acute) Encounter for pre-operative examination Dementia Bilateral inguinal hernia History of exertional chest pain LECHUGA (dyspnea on exertion) NAION (non-arteritic anterior ischemic optic neuropathy) Bifascicular block Orthostasis Medical History History of COVID-19 2 yr ago / 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 hx balance problem/now resolved. 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 Reading disability, developmental Reading comprehension disorder Fear of needles Dementia beginning stages/follows pcp SOB (shortness of breath) on exertion mild with daily activity and stairs. Bifascicular block 2 yr ago/Dr. Hu History of hypertension Surgical History H/O bilateral inguinal hernia repair (02/28/24) Robotic Assisted Bilateral Laparoscopic Inguinal Hernia Repair(Bilateral) - Francisco Suggs DO, FACS History of colonoscopy H/O wisdom tooth extraction Family History Mother Hypertension Myocardial infarction Diabetes Father Myocardial infarction Hypertension Grandfather (Maternal) Myocardial infarction Hypertension Social History Smoking Status: Never smoker Second Hand Exposure: No; Do You Dip or Chew Tobacco: No; Hx Alcohol Use: No Hx Substance Use: No Preferred Language: Romanian Communication Ability: Effective Communication Ability Comment: pt has beg stages dementia/ helps with interview/pt comm is effective Emergency Medical Technician Required: No Beliefs That Will Affect Care: None marital status: Current Living Situation: Spouse Current Living Situation Comment: home with Ankita current occupational status: retired How many Children do You have: 2 Feels Safe at Home: Yes Diet: regular during the past year weight has: decreased > 10 lbs Assistive Devices: None Review of Systems Review of Systems: All systems reviewed & are unremarkable except as noted in Subjective Dementia; ROS limited Physical Exam Physical Exam: General: No acute distress Skin: Warm and dry, without rashes or lesions Head: Normocephalic, atraumatic Eyes: PERRL, conjunctivae clear, sclera non-icteric; EOM intact ENT: External ear and ear canal without swelling; nose atraumatic; good dentition, tongue normal appearance, oropharynx appears dry Neck: Supple, no LAD; no JVD Cardio: RRR, no M/G/R, S1 and S2 normal Resp: No respiratory distress, Lungs CTA in all lobes bilaterally, no wheezes, rales, or rhonchi Abdomen: Soft, symmetric, nontender; No masses or hepatosplenomegaly; Bowel sounds normoactive MSK: No deformities, full ROM throughout; pulses palpable and equal; no edema. Neuro: Awake, alert; Muscle strength 4/5 bilaterally in UE/LE; Sensation intact bilaterally; CN grossly intact Psych: Pleasant; engages in some conversation. is present in room at time of visit. Results & Data Results & Data Vital Signs (Past 12 Hours) Vital Signs Temp Pulse Pulse Resp BP BP Pulse Ox 11/15/24 11:19 36.6 C 81 22 161/110 H 97 11/15/24 10:33 79 30 H 97 11/15/24 10:30 167/103 H 11/15/24 10:30 167/103 H 11/15/24 10:18 74 20 97 11/15/24 10:00 74 24 97 11/15/24 10:00 151/93 H 11/15/24 10:00 151/93 H 11/15/24 10:00 151/93 H 11/15/24 09:36 76 21 97 11/15/24 09:30 155/99 H 11/15/24 09:30 155/99 H 11/15/24 09:27 71 15 97 11/15/24 09:21 74 18 98 11/15/24 09:15 72 18 98 11/15/24 09:09 98 11/15/24 09:09 98 11/15/24 09:04 69 11/15/24 09:02 162/125 H 11/15/24 08:49 36.6 C 124 H 18 88/64 L 94 O2 Del Method O2 Flow Rate 11/15/24 11:19 Room Air 11/15/24 10:33 11/15/24 10:30 11/15/24 10:30 11/15/24 10:18 11/15/24 10:00 11/15/24 10:00 11/15/24 10:00 11/15/24 10:00 11/15/24 09:36 11/15/24 09:30 11/15/24 09:30 11/15/24 09:27 11/15/24 09:21 11/15/24 09:15 11/15/24 09:09 Room Air 11/15/24 09:09 Room Air 0 11/15/24 09:04 11/15/24 09:02 11/15/24 08:49 Laboratory Results Reviewed CBC, CMP, Troponin, lipase Diagnostic Findings Chest X-Ray 11/15/24 09:05 XR chest 1V portable HISTORY: 74 years-old Male Chest pain, nonspecific COMPARISON: 03/05/2024 TECHNIQUE: AP view of the chest FINDINGS: Cardiomediastinal and hilar silhouettes are within normal limits. Chronic interstitial coarsening. No pneumothorax, pleural effusion, airspace consolidation or pulmonary edema. Bones appear grossly intact. IMPRESSION: No acute process. ACT 112: Negative or not required by law. The above report was generated using voice recognition software. It may contain grammatical, syntax or spelling errors. Electronically signed by: Dayo Rios M.D. 11/15/2024 10:14 AM Chest CTA 11/15/24 10:30 CT angio chest PE protocol CT DOSE: 496.05 mGy.cm HISTORY: 74 years-old Male with PE. Acute shortness of breath TECHNIQUE: Multiple CTA images of the chest were obtained after the intravenous administration of 119 ml Optiray. Coronal and sagittal MIPS were obtained from the axial data set and were submitted for review. All measurements were obtained according to NASCET criteria. A dose lowering technique was utilized adhering to the principles of ALARA. COMPARISON: CTA chest 03/05/2024 FINDINGS: CTA: Cardiomegaly without pericardial effusion. Moderate to extensive coronary artery calcifications. No thoracic aortic aneurysm or dissection. Demonstration of a few small segmental/subsegmental pulmonary emboli within the right lung, similar to prior. No new pulmonary emboli identified. CT CHEST: Unremarkable thyroid. No lymphadenopathy. No pneumothorax, pleural effusion or airspace consolidation. Resolution of the previously described pulmonary opacities. There is mild subsegmental bibasilar atelectasis. Central airways are patent. Pectus excavatum. Left retrocrural calcifications are again noted. U nremarkable soft tissues. No acute fracture is seen. IMPRESSION: 1. Small chronic segmental/subsegmental pulmonary emboli of the right lower lobe, unchanged from 03/05/2024 2. No pleural effusion or airspace consolidation. ACT 112: Negative or not required by law. The above report was generated using voice recognition software. It may contain grammatical, syntax or spelling errors. Electronically signed by: Dayo Rios M.D. 11/15/2024 11:25 AM Medications Administered N/A ECG Additional Comments: EKG NSR, sinus arrhythmia, rate 73 RBBB, LAFB; NH 192, QRS 134, QT/QTc 408/449, PRT /33 Code Status & VTE Plan Code Status DNR/DNI VTE Prophylaxis Plan VTE Prophylaxis will be ordered: Yes Supervising Physician Co-Signing Physician Notes ELISA Supervision Note: I personally saw and examined the patient. I verified all bailey points and agree with ELISA Boyer with the following exceptions and/or additions: S-this patient is a 74-year-old male with a history of dementia, PE provoked by inguinal hernia surgery and post-COVID dysautonomia with orthostasis who presents to the ER with vague symptoms of chest pains and shortness of breath. He was found to be tachycardic in the 120s and a systolic blood pressure in the 80s in triage which resolved by the time he was brought back to a room in the ER. His ECG did not show any tacky arrhythmia. No other new symptoms as per the patient's . Patient has dementia and is not able to give much history otherwise. History and ROS otherwise reviewed as above O- Vitals reviewed Gen: Alert awake oriented to person, NAD HEENT: Anicteric sclerae A/O-[id number]-old male here with chest pain and shortness of breath, thought to be vague symptoms related to orthostasis Admit on observation for telemetry monitoring for arrhythmia, hydrate with IV fluids, add TIMOTHY hose for orthostasis Trend serial troponin and check echocardiogram PT/OT consults placed PG Care Time/CCT Total # of Minutes Spent Total Time Spent with Patient: Total time spent is greater than 50% in coordination of care (as documented) at patient's floor/unit and/or counseling patient: Coding Level of Care Code 50322 INT INP/OBS CARE 2/55MIN Diagnoses Orthostasis I95.1 Dementia F03.90 Pulmonary emboli I26.99
[2024-11-15] MEDS ORDERED: POLYETHYLENE (MIRALAX) 17 GM PACK PO PRN (13:23)
[2024-11-15] MEDS ORDERED: MAGNESIUM HYDROXIDE SUSP 30 ML UDC PO PRN (13:23)
[2024-11-15 13:59] LABS: Appearance Urine Clear (Clear); Bilirubin Urine Negative (Negative); Blood Urine Negative (Negative); Color Urine Yellow; Glucose Urine UA Negative (Negative); Ketones Urine Trace (Negative); Leukocyte Esterase Urine Negative (Negative); Nitrite Urine Negative (Negative); Protein Urine Negative (Negative); Specific Gravity Urine 1.045 (1.000-1.030); Urobilinogen Urine Negative (Negative)
--- NOTE | 2024-11-15 14:38 | XCELERA ---
[id number]
[2024-11-15] MEDS: SODIUM CHLORIDE 0.9% 1,000 ML IV SCH (15:13)
--- NOTE | 2024-11-15 15:51 | Electrocardiogram Report ---
Test Reason : Blood Pressure : */* mmHG Vent. Rate : 73 BPM Atrial Rate : 73 BPM P-R Int : 192 ms QRS Dur : 134 ms QT Int : 408 ms P-R-T Axes : 71 -52 33 degrees QTcB Int : 449 ms Normal sinus rhythm with sinus arrhythmia Right bundle branch block Left anterior fascicular block Bifascicular block Abnormal ECG When compared with ECG of 05-Mar-2024 11:55, No significant change was found Confirmed by Pratik Miramontes ([id number]) on 11/15/2024 3:51:08 PM Referred By: REFERRED SELF Confirmed By: Pratik Miramontes
[2024-11-15] MEDS: MELATONIN 3 MG TAB PO PRN (22:45)
[2024-11-16] MEDS: FLUDROCORTISONE ACETATE 0.1 MG TAB PO SCH (12:37)
--- NOTE | 2024-11-16 14:39 | Hospitalist Progress Note ---
Date of Service November 16, 2024 Assessment & Plan (1) Orthostasis: (2) Dementia: (3) Pulmonary emboli: Plan 74-year-old male PMHx dementia who is presenting for recent onset of chest pain and increased shortness of breath as well as dizziness with near syncope. Upon initial arrival to ED patient's heart rate was in the 120s, with a systolic blood pressure in the 80s. Upon repeat vitals he is hemodynamically stable. Workup chronic pulmonary emboli on chest CTA, but otherwise findings are grossly WNL. #Orthostasis Suspect that patient's symptoms of worsening lightheadedness/dizziness occurring mainly when going from sitting to standing or secondary to orthostasis. 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 notes worsening SOB w/ walking. - CBC w/o signs of anemia -CMP w/ BUN/Cr ratio 22.2 supportive of possible dehydration, w/o gross electrolyte abnormalities -Troponin 10.5, w/ repeat at 8.6 -COVID negative - EKG on arrival NSR w/ sinus arrhythmia, RBBB + LAFB; rate 70s; EKG daily - CXR w/o caute findings - Chest CTA revealing chronic pulmonary emboli, unchanged since 02/2024 -Echo 11/15: LV systolic function low normal. RV normal w/ size/function. IVC moderately dilated. No significant valvular heart disease. -Orthostatic vitals + x 2 times on 11/16/24 w/ standing BP 83/58 advised that he has orthostasis at home, educated that his standing BP is currently unsafe for him to return home with. -started Fludrocortisone 0.1mg PO daily on 11/16 -s/p 1L IVF -Kelvin terry -PT/OT #Dementia H/o dementia at baseline, per . provides majority of history. - Allow for ancillary therapy to include increasing familiarity of setting + decrease restraints + remove lines if possible + promote good sleep- melatonin added -Patient remained stable throughout 11/15 evening and 11/16 day, downgraded to medical so could stay with patient overnight to aide with agitation. #Pulmonary emboli, LLL, chronic Ongoing since 02/2024, completed 6 months of Eliquis + no longer taking - Chest CTA revealing pulmonary emboli; stable - Not hypoxic or SOB currently; will monitor-no need for further anticoagulation at this time Dispo: medical VTE Prophylaxis: SCDs Hopeful for discharge 11/17 pending stabilization of patient's orthostatic vitals. Admission and Anticipated Discharge Date Admission Date: November 15, 2024 Subjective Patient seen and examined at bedside. Patient with history of dementia and at baseline mental status. present. No history able to be obtained from patient. Patient continues with + orthostasis with systolic BP in 80s. Patient's reports they have this issue at home but did notice the SOB while he was ambulating. Physical Exam Constitutional: WD/WN, vitals as above Respiratory: breathing unlabored Cardiovascular: well perfused Psychiatric: plesantly demented Results & Data Results & Data Vital Signs (Past 12 Hours) Vital Signs Temp Pulse Pulse Pulse Resp BP Pulse Ox 11/16/24 11:38 36.6 C 91 H 16 144/88 H 98 11/16/24 08:00 99 H 11/16/24 07:37 36.6 C 91 H 16 178/100 H 94 11/16/24 02:36 36.5 C 86 18 189/103 H 95 O2 Del Method 11/16/24 11:38 Room Air 11/16/24 08:00 11/16/24 07:37 Room Air 11/16/24 02:36 Room Air PG Care Time/CCT Total # of Minutes Spent Total Time Spent with Patient: Total time spent is greater than 50% in coordination of care (as documented) at patient's floor/unit and/or counseling patient: Coding Level of Care Code 27821 SUB INP/OBS CARE 2/35MIN Diagnoses Orthostasis I95.1 Dementia F03.90 Pulmonary emboli I26.99
[2024-11-17 10:49] LABS: BUN Creatinine Ratio 22.4 (10-20); Calcium 9.1 mg/dl (8.6-10.3); Creatinine Clr Calc Pharmacy 51.1 ml/min; Potassium 4.1 mmol/L (3.5-5.1)
[2024-11-17 10:50] LABS: Hematocrit (blood only) 41.9 % (42.0-52.0); Hemoglobin 14.8 g/dl (14.0-18.0); Mean Corpuscular Hemoglobin 30.8 pg (25.0-34.0); Mean Corpuscular Hgb Conc 35.3 g/dL (32.0-36.0); Mean Corpuscular Volume 87.1 fL (80.0-100.0); Platelet Count 297 K/uL (130-400); RDW Coefficient of Variation 12.6 % (11.5-14.5); RDW Standard Deviation 39.8 fL (36.4-46.3); Red Blood Count 4.81 M/uL (4.70-6.10); White Blood Count 9.06 K/ul (4.8-10.8)
[2024-11-17] MEDS: SODIUM CHLORIDE 0.9% 500 ML IV ONE (11:23)
[2024-11-17] MEDS: OPTIRAY 320 100ml IV ONE (12:17)
--- NOTE | 2024-11-17 12:48 | CT Scan Report ---
CT head/brain wo/w con CLINICAL HISTORY: AMS TECHNIQUE: Contiguous axial CT images of the head from the base of the skull to the vertex before and after intravenous administration of IV contrast and submitted for interpretation. Automated dose low ering techniques and/or adjustment according to patient size were utilized for this examination. CT DOSE: 1250.21 mGy.cm COMPARISON: None available at the time of this dictation. Findings: Areas of decreased attenuation are present in the periventricular and subcortical white matter bilate rally consistent with small vessel ischemic disease. Generalized cerebral atrophy with commensurate e nlargement of the ventricles, sulci, and cisterns is also present. There is no acute intracranial hem orrhage or evidence of acute territorial infarction. No shift of the midline structures, mass effect, or extra-axial abnormalities are shown. Atherosclerotic calcifications are present in the intracran ial segments of the internal carotid arteries. Imaged portions of the paranasal sinuses and mastoid air cells are clear. The orbits appear normal. There are no acute fractures of the calvaria or scalp swelling. Impression: No acute intracranial hemorrhage, no evidence of acute territorial infarction or other acute intracra nial disease process. ACT 112: Negative or not required by law. Electronically signed by: Sinan Mo M.D. 11/17/2024 12:47 PM
--- NOTE | 2024-11-17 15:43 | Hospitalist Progress Note ---
Date of Service November 17, 2024 Assessment & Plan (1) Orthostasis: (2) Dementia: (3) Pulmonary emboli: Plan 74-year-old male PMHx dementia who is presenting for recent onset of chest pain and increased shortness of breath as well as dizziness with near syncope. Upon initial arrival to ED patient's heart rate was in the 120s, with a systolic blood pressure in the 80s. Upon repeat vitals he is hemodynamically stable. Workup chronic pulmonary emboli on chest CTA, but otherwise findings are grossly WNL. #Orthostasis Suspect that patient's symptoms of worsening lightheadedness/dizziness occurring mainly when going from sitting to standing or secondary to orthostasis. 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 notes worsening SOB w/ walking. - CBC w/o signs of anemia -CMP w/ BUN/Cr ratio 22.4 supportive of possible dehydration, w/o gross electrolyte abnormalities -Troponin 10.5, w/ repeat at 8.6 -COVID negative - EKG on arrival NSR w/ sinus arrhythmia, RBBB + LAFB; rate 70s; EKG daily - CXR w/o caute findings - Chest CTA revealing chronic pulmonary emboli, unchanged since 02/2024 -Echo 11/15: LV systolic function low normal. RV normal w/ size/function. IVC moderately dilated. No significant valvular heart disease. -Head CT 11/17: negative -Orthostatic vitals + x 2 times on 11/16/24 w/ standing BP 83/58, fludrocortisone 0.1mg PO daily then added -patient w/ fainting episode 11/17, received 500ml NSS bolus and returned to his baseline. Will re-attempt vitals 11/18 dependent on patient condition. -PT was to see patient but notified them to return 11/18. -Kelvin terry -PT/OT #Dementia H/o dementia at baseline, per . provides majority of history. - Allow for ancillary therapy to include increasing familiarity of setting + decrease restraints + remove lines if possible + promote good sleep- melatonin added #Pulmonary emboli, LLL, chronic Ongoing since 02/2024, completed 6 months of Eliquis + no longer taking - Chest CTA revealing pulmonary emboli; stable - Not hypoxic or SOB currently; will monitor-no need for further anticoagulation at this time Dispo: medical VTE Prophylaxis: SCDs Updated at bedside extensively x 2 on 11/17 Admission and Anticipated Discharge Date Admission Date: November 17, 2024 Subjective Patient seen and examined this morning. At time of encounter, orthostatic vitals were being attempted. Upon entering the room, patient was trying to stay standing while his BP was being taken however he then fell back onto his bed and laid back. There was a brief period of unresponsiveness. Patient's BP was 91/67 and he then was starting to move/talk. Suspect that his BP was the cause of this fainting episode. Discussed w/ patient needs to be admitted for further care as he is not safe to go home in this condition. verbalized her understanding Physical Exam Constitutional: WD/WN, vitals as above Eyes: PERRL, conjunctivae normal, anicteric sclerae Respiratory: normal respiratory effort, lungs clear to auscultation Cardiovascular: RRR, no murmur, no edema Psychiatric: pleasantly demented Results & Data Results & Data Vital Signs (Past 12 Hours) Vital Signs Temp Pulse Resp BP BP Pulse Ox O2 Del Method 11/17/24 15:37 88 18 162/113 H 96 Room Air 11/17/24 09:58 104 H 91/59 L 11/17/24 07:25 36.4 C L 92 H 18 156/100 H 97 Room Air 11/17/24 07:15 Room Air PG Care Time/CCT Total # of Minutes Spent Total Time Spent with Patient: Total time spent is greater than 50% in coordination of care (as documented) at patient's floor/unit and/or counseling patient: Coding Level of Care Code 10401 SUB INP/OBS CARE 3/50MIN Diagnoses Orthostasis I95.1 Dementia F03.90 Pulmonary emboli I26.99
[2024-11-18] MEDS: hydrALAZINE HCL 20 MG/ML VIAL IV ONE (04:11)
[2024-11-18 07:58] LABS: BUN Creatinine Ratio 20.8 (10-20); Calcium 9.5 mg/dl (8.6-10.3); Creatinine Clr Calc Pharmacy 56.9 ml/min; Potassium 4.5 mmol/L (3.5-5.1)
--- NOTE | 2024-11-18 15:59 | Hospitalist Progress Note ---
Date of Service November 18, 2024 Assessment & Plan (1) Orthostasis: (2) Dementia: (3) Pulmonary emboli: Plan 74-year-old male PMHx dementia who is presenting for recent onset of chest pain and increased shortness of breath as well as dizziness with near syncope. Workup chronic pulmonary emboli on chest CTA, but otherwise findings are grossly WNL. #Orthostasis Suspect that patient's symptoms of worsening lightheadedness/dizziness occurring mainly when going from sitting to standing or secondary to orthostasis. 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 notes worsening SOB w/ walking. Do not treat patient's hypertension while lying down. Patient has severe orthostatic hypotension and ant-hypertensive agents will worsen this. - CBC w/o signs of anemia -BMP w/ stable renal function and electrolytes -Troponin 10.5, w/ repeat at 8.6 -COVID negative - EKG on arrival NSR w/ sinus arrhythmia, RBBB + LAFB; rate 70s; EKG daily - CXR w/o acute findings - Chest CTA revealing chronic pulmonary emboli, unchanged since 02/2024 -Echo 11/15: LV systolic function low normal. RV normal w/ size/function. IVC moderately dilated. No significant valvular heart disease. -Head CT 11/17: negative -fludrocortisone added 11/16 -Patient reluctant to take PO medications, has been encouraging him at bedside. -patient hypertensive overnight 11/17 and was given a 1 time dose of 5mg IV hydralazine - patient with near syncopal episode w/ sitting on 11/18. -palliative care consulted 11/18 given patient's advancing dementia and severe orthostasis. -Patient's considering home hospice. - she is to talk to her children and have a decision for palliative care on 11/19. -Kelvin terry -PT/OT - recommending rehab #Dementia H/o dementia at baseline, per . provides majority of history. - Allow for ancillary therapy to include increasing familiarity of setting + decrease restraints + remove lines if possible + promote good sleep- melatonin added #Pulmonary emboli, LLL, chronic Ongoing since 02/2024, completed 6 months of Eliquis + no longer taking - Chest CTA revealing pulmonary emboli; stable - Not hypoxic or SOB currently; will monitor-no need for further anticoagulation at this time Dispo: medical VTE Prophylaxis: SCDs Updated at bedside extensively 11/18. discussed w/ palliative care provider 11/18 Admission and Anticipated Discharge Date Admission Date: November 17, 2024 Subjective Patient seen and examined this morning at bedside. Patient unable to provide history. Resting comfortably in bed. Discussed treatment options w/ patient's at bedside. Options include proceeding with treatment vs transitioning to a palliative approach. Patient's was open to discussing this with our palliative care team. Physical Exam Constitutional: resting in bed. no history obtained Respiratory: normal respiratory effort. Psychiatric: calm and cooperative Results & Data Results & Data Vital Signs (Past 12 Hours) Vital Signs Temp Pulse Resp BP BP Pulse Ox O2 Del Method 11/18/24 15:05 36.5 C 93 H 16 127/85 94 Room Air 11/18/24 08:16 36.5 C 94 H 18 158/101 H 97 Room Air 11/18/24 06:12 175/95 H 11/18/24 05:49 88 16 179/114 H 96 Room Air 11/18/24 04:00 90 179/133 H 96 Room Air PG Care Time/CCT Total # of Minutes Spent Total Time Spent with Patient: Total time spent is greater than 50% in coordination of care (as documented) at patient's floor/unit and/or counseling patient: Coding Level of Care Code 24571 SUB INP/OBS CARE 3/50MIN Diagnoses Orthostasis I95.1 Dementia F03.90 Pulmonary emboli I26.99
--- NOTE | 2024-11-18 19:43 | Palliative Care Consultation ---
Date of Consultation November 18, 2024 Assessment & Plan (1) Palliative care by specialist: (2) Counseling regarding advanced directives and goals of care: (3) Counseling regarding end of life decision making: Plan lengthy [facility] conversation with patient and his Cheryl Navarro at bedside today. Pt is resistant to communicating or answering questions. When he does speak he appears to have difficulty with word finding as well as difficulty speaking in coherent sentences. reports this is not his baseline but has been a gradual decline over a few weeks. Pt does require a proxy for medical decisions. Patient has exhibited current lack of decisional capacity based on the inability to convey understanding of personal PMHx, current medical condition, treatment options nor the risks / benefits of those options, and lack of ability to make decisions based on such knowledge. reports that pt does not have written documentation of patient wishes concerning his chosen proxy for medical decisions. Per PA [id number], in a bsence of written documentation of patient wishes, pt's proxy for medical decisions is his . Cheryl and Ron have been for 56y and have 2 daughters, 4 grand ch ildren and three great grand children. None of these relatives live locally, but they do have neices and nephews who live close by. Cheryl shared concern that the patient has had a dramatic decrease in cognition and independence since he had COVID several months ago. We spent a substantial amount of time discussing the progressive nature of dementia. Helped Cheryl understand that dementia is incurable and irreversible, and can include progressive/worsening memory loss, confusion, language difficulties/lack of comprehension skills/loss of verbal skills eventually, mood changes, impaired judgment, trouble with motor skills/coordination/balance issues, visual and spatial problems, hallucinations, and personality changes. The rate of progression with dementia can vary widely from person to person. Factors such as the types of dementia involved, overall health, and genetics can influence the speed of progression. Some individuals experience a more gradual decline, while others may progress more rapidly through the stages. We discussed the stages of dementia: Stage 1: Normal Functioning: In the early stage, individuals show no signs of dementia, and their cognitive function is normal Stage 2: Very Mild Cognitive Decline: Minor memory lapses and forgetfulness may occur but are often attributed to normal aging Stage 3: Mild Cognitive Decline: Early signs of dementia become more noticeable, such as memory problems and difficulty finding words Stage 4: Moderate Cognitive Decline: Memory loss becomes more pronounced, and individuals may struggle with tasks like managing finances and planning Stage 5: Moderately Severe Cognitive Decline: Daily functioning becomes challenging, and individuals may require assistance with tasks like dressing and bathing Stage 6: Severe Cognitive Decline: In this stage, individuals need substantial help with daily activities, and communication becomes increasingly difficult Stage 7: Very Severe Cognitive Decline: In the final stage, individuals may lose the ability to communicate, walk, and perform basic tasks. They require [id number] care. Reviewed pt is in Stage 5-6 and likely turning a page to the more advanced stages of dementia which are creating the problems with poor oral intake leading to dehydration complicating recurrent UTIs and JUANI. It is cyclical and progressive, unfortunately, and trying to "fix" any one thing will not cure/reverse/fix the other underlying chronic issues. Cheryl expressed concern that her 's dementia was progressing quite rapidly over past several months and he would not consider this fitting with his values or goals of care. She shared concern that he had very minimal PO intake since . We discussed supplemental feeding via PEG tube, given to irreversible nature of dementia. Cheryl expressed that the pt would not be acceptant of a feeding tube and would likely pull it right out. She shared that she would also not want her restrained simply to feed him. We discussed options for ongoing life prolonging therapies including tube feeds vs a comfort directed approach to care. Cheryl questioned what comfort directed care would look like. Discussed comfort care/hospice care and criteria for three possible levels of hospice care. All questions encouraged and answered. Cheryl requested some time to consider options and to revisit goals of care tomorrow. History of Present Illness Reason for Consultation: goals of care Requesting Physician: Zain Perez MD Attending Physician: Zain Perez MD History of Present Illness Ron Navarro is a 74y male PMHx dementia presenting to ED on 11/15 with one day of progressive SOB, LECHUGA and CP and several days of near syncope. Patient is not on any daily medications. Patient's chest CTA did reveal small chronic segmental/subsegmental pulmonary emboli in the RLL which been unchanged since February 2024. Pt has been admitted for medical management of orthostatic hypotension. Patient has been resistant to taking oral medications with very poor PO intake. Palliative care consulted for assistance with goals of care given pt's resistance to medical care. Allergies Allergy/AdvReac Type Severity Reaction Status Date / Time acetaminophen [From Tylenol] Allergy Unknown Shortness Verified 11/15/24 11:38 of breath, rash diphenhydramine Allergy Unknown Rash Verified 11/15/24 11:38 [From Benadryl] ibuprofen [From Advil] Allergy Unknown Rash Verified 11/15/24 11:38 NSAIDS (Non-Steroidal Allergy Unknown Rash Verified 11/15/24 11:38 Anti-Inflamma Home Medications Medication Instructions Recorded Confirmed Type No Known Home Medications 11/15/24 11/15/24 History Patient History Medical History History of COVID-19 2 yr ago / 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 hx balance problem/now resolved. 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 Reading disability, developmental Reading comprehension disorder Fear of needles Dementia beginning stages/follows pcp SOB (shortness of breath) on exertion mild with daily activity and stairs. Bifascicular block 2 yr ago/Dr. Hu History of hypertension Surgical History H/O bilateral inguinal hernia repair (02/28/24) Robotic Assisted Bilateral Laparoscopic Inguinal Hernia Repair(Bilateral) - Francisco Suggs DO, FACS History of colonoscopy H/O wisdom tooth extraction Family History Mother Hypertension Myocardial infarction Diabetes Father Myocardial infarction Hypertension Grandfather (Maternal) Myocardial infarction Hypertension Social History Smoking Status: Never smoker Second Hand Exposure: No; Do You Dip or Chew Tobacco: No; Hx Alcohol Use: No Hx Substance Use: No Preferred Language: Kiswahili Communication Ability: Effective Communication Ability Comment: pt has beg stages dementia/ helps with interview/pt comm is effective Underwater Trapper Required: No Beliefs That Will Affect Care: None marital status: Current Living Situation: Spouse Current Living Situation Comment: home with Ankita current occupational status: retired How many Children do You have: 2 Other Information That Helps Us Care for You: No Feels Safe at Home: Yes Safety Concerns: Feels Safe At This Time Diet: regular during the past year weight has: decreased > 10 lbs Assistive Devices: Cane, Walker, Wheelchair and Other Review of Systems Review of Systems: Unobtainable due to cognitive status Physical Exam Physical Exam: General: No acute distress Skin: Warm and dry, without rashes or lesions Head: Normocephalic, atraumatic Eyes: PERRL, conjunctivae clear, sclera non-icteric; EOM intact ENT: External ear and ear canal without swelling; nose atraumatic; good dentition, tongue normal appearance, oropharynx appears dry Neck: Supple, no LAD; no JVD Cardio: RRR, no M/G/R, S1 and S2 normal Resp: No respiratory distress, Lungs CTA in all lobes bilaterally, no wheezes, rales, or rhonchi Abdomen: Soft, symmetric, nontender; No masses or hepatosplenomegaly; Bowel sounds normoactive MSK: No deformities, full ROM throughout; pulses palpable and equal; no edema. Neuro: Awake, alert; Muscle strength 4/5 bilaterally in UE/LE; Sensation intact bilaterally; CN grossly intact Psych: Pleasantly confused; engages in some conversation. Results & Data Vital Signs (Past 12 Hours) Vital Signs Temp Pulse Resp BP Pulse Ox O2 Del Method 11/18/24 15:05 36.5 C 93 H 16 127/85 94 Room Air 11/18/24 08:16 36.5 C 94 H 18 158/101 H 97 Room Air Laboratory Results Abnormal lab results 11/18/24 Range/Units 07:11 BUN/Creatinine Ratio 20.8 H (10-20) Diagnostic Findings Chest X-Ray 11/15/24 09:05 XR chest 1V portable HISTORY: 74 years-old Male Chest pain, nonspecific COMPARISON: 03/05/2024 TECHNIQUE: AP view of the chest FINDINGS: Cardiomediastinal and hilar silhouettes are within normal limits. Chronic interstitial coarsening. No pneumothorax, pleural effusion, airspace consolidation or pulmonary edema. Bones appear grossly intact. IMPRESSION: No acute process. ACT 112: Negative or not required by law. The above report was generated using voice recognition software. It may contain grammatical, syntax or spelling errors. Electronically signed by: Dayo Rios M.D. 11/15/2024 10:14 AM Chest CTA 11/15/24 10:30 CT angio chest PE protocol CT DOSE: 496.05 mGy.cm HISTORY: 74 years-old Male with PE. Acute shortness of breath TECHNIQUE: Multiple CTA images of the chest were obtained after the intravenous administration of 119 ml Optiray. Coronal and sagittal MIPS were obtained from the axial data set and were submitted for review. All measurements were obtained according to NASCET criteria. A dose lowering technique was utilized adhering to the principles of ALARA. COMPARISON: CTA chest 03/05/2024 FINDINGS: CTA: Cardiomegaly without pericardial effusion. Moderate to extensive coronary artery calcifications. No thoracic aortic aneurysm or dissection. Demonstration of a few small segmental/subsegmental pulmonary emboli within the right lung, similar to prior. No new pulmonary emboli identified. CT CHEST: Unremarkable thyroid. No lymphadenopathy. No pneumothorax, pleural effusion or airspace consolidation. Resolution of the previously described pulmonary opacities. There is mild subsegmental bibasilar atelectasis. Central airways are patent. Pectus excavatum. Left retrocrural calcifications are again noted. Unremarkable soft tissues. No acute fracture is seen. IMPRESSION: 1. Small chronic segmental/subsegmental pulmonary emboli of the right lower lobe, unchanged from 03/05/2024 2. No pleural effusion or airspace consolidation. ACT 112: Negative or not required by law. The above report was generated using voice recognition software. It may contain grammatical, syntax or spelling errors. Electronically signed by: Dayo Rios M.D. 11/15/2024 11:[address] 11/17/24 11:13 CT head/brain wo/w con CLINICAL HISTORY: AMS TECHNIQUE: Contiguous axial CT images of the head from the base of the skull to the vertex before and after intravenous administration of IV contrast and submitted for interpretation. Automated dose lowering techniques and/or adjustment according to patient size were utilized for this examination. CT DOSE: 1250.21 mGy.cm COMPARISON: None available at the time of this dictation. Findings: Areas of decreased attenuation are present in the periventricular and subcortical white matter bilaterally consistent with small vessel ischemic disease. Generalized cerebral atrophy with commensurate enlargement of the ventricles, sulci, and cisterns is also present. There is no acute intracranial hemorrhage or evidence of acute territorial infarction. No shift of the midline structures, mass effect, or extra-axial abnormalities are shown. Atherosclerotic calcifications are present in the intracranial segments of the internal carotid arteries. Imaged portions of the paranasal sinuses and mastoid air cells are clear. The orbits appear normal. There are no acute fractures of the calvaria or scalp swelling. Impression: No acute intracranial hemorrhage, no evidence of acute territorial infarction or other acute intracranial disease process. ACT 112: Negative or not required by law. Electronically signed by: Sinan Mo M.D. 11/17/2024 12:47 PM Medications Administered Current Inpatient Medications Fludrocortisone Acetate (Fludrocortisone Acetate 0.1 Mg Tab) 0.1 mg PO QAM CHIOMA Stop: 12/16/24 12:29 Last Admin: 11/18/24 08:06 Dose: 0.1 mg Magnesium Hydroxide (Magnesium Hydroxide Susp 30 Ml Udc) 30 ml PO Q6H PRN PRN Reason: Constipation Stop: 12/15/24 13:22 Melatonin (Melatonin 3 Mg Tab) 3 mg PO HS PRN PRN Reason: Insomnia Stop: 12/15/24 13:22 Last Admin: 11/15/24 22:45 Dose: 3 mg Polyethylene Glycol (Polyethylene (Miralax) 17 Gm Pack) 17 gm PO DAILY PRN PRN Reason: Constipation Stop: 12/15/24 13:22 PG Care Time/CCT Total # of Minutes Spent Total Time Spent with Patient: Total time spent is greater than 50% in coordination of care (as documented) at patient's floor/unit and/or counseling patient: Advanced Care Planning 93567 Advanced Care Planning 30 [place] [address] IN/OBS CONSULT LVL 2,35M Patient Type New History Expanded Problem Focused Exam Expanded Problem Focused Medical Decision Making Low Complexity Diagnoses Palliative care by specialist Z51.5 Counseling regarding advanced directives and goals of care Z71.89 Counseling regarding end of life decision making Z71.89 Additional Codes Advanced Care Planning - 65177 Advanced Care Planning 30 Min: 88251 Advanced Care Planning 30 Min ([id number])
[2024-11-19 08:49] VITALS: BP 193/87; PULSE 96; RESP 18; TEMP 99.7; O2SAT 96
--- NOTE | 2024-11-19 15:52 | Hospitalist Progress Note ---
Date of Service November 19, 2024 Assessment & Plan (1) Orthostasis: (2) Dementia: (3) Pulmonary emboli: Plan 74-year-old male PMHx dementia who is presenting for recent onset of chest pain and increased shortness of breath as well as dizziness with near syncope. Workup chronic pulmonary emboli on chest CTA, but otherwise findings are grossly WNL. #Orthostasis Suspect that patient's symptoms of worsening lightheadedness/dizziness occurring mainly when going from sitting to standing or secondary to orthostasis. 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 notes worsening SOB w/ walking. -Troponin 10.5, w/ repeat at 8.6. No chest pain. - COVID negative. CXR no acute findings. Chest CTA: chronic PE, unchanged. -Echo 11/15: LV systolic function low normal. RV normal w/ size/function. IVC moderately dilated. No significant valvular heart disease. -Head CT 11/17: negative -fludrocortisone added 11/16 - however difficulty with patient taking medications. -palliative care consulted - plan for home with hospice awaiting arrangement of equiptment - prn zofran and Ativan added Will attempt to collect a urine sample to make sure UTI did not leading to worsening symptoms #Dementia H/o dementia at baseline, per . provides majority of history. - Allow for ancillary therapy to include increasing familiarity of setting + decrease restraints + remove lines if possible + promote good sleep- melatonin added #Pulmonary emboli, LLL, chronic Ongoing since 02/2024, completed 6 months of Eliquis + no longer taking - Not hypoxic or SOB currently; will monitor-no need for further anticoagulation at this time Dispo: continued inpatient stay while home hospice can be arranged VTE Prophylaxis: SCDs Updated at bedside 11/18 & 11/19. discussed w/ palliative care provider 11/19 Admission and Anticipated Discharge Date Admission Date: November 17, 2024 Supervising Physician Co-Signing Physician Notes Attending Attestation - Chart reviewed, care plan d/w ELISA Fontenot. I agree with the bailey components of her documentation. Bobo Manriquez MD Subjective patient seen lying in bed, present at bedside. Patient responds to his name but does not contribute meaningful history. He does deny pain has decided to proceed with hospice Review of Systems Review of Systems: All systems reviewed & are unremarkable except as noted in Subjective Physical Exam Physical Exam: General: NAD, VS as above Resp: normal respiratory effort, lungs clear to auscultation CV: RRR, no murmur, Abd: normal bowel sounds, appears painful to suprapubic palpation Extremities: Moves all extremities, no edema Neuro: A&O x1, resting tremor Skin: intact, no lesions noted Results & Data Results & Data Vital Signs (Past 12 Hours) Vital Signs Temp Pulse Resp BP Pulse Ox O2 Del Method 11/19/24 08:48 99.7 F H 96 H 18 193/87 H 96 Room Air 11/19/24 08:41 Room Air PG Care Time/CCT Total # of Minutes Spent Total Time Spent with Patient: Total time spent is greater than 50% in coordination of care (as documented) at patient's floor/unit and/or counseling patient: Coding Level of Care Code 16013 SUB INP/OBS CARE 2/35MIN Diagnoses Orthostasis I95.1 Dementia F03.90 Pulmonary emboli I26.99
[2024-11-20] MEDS ORDERED: HYDROCORTISONE 1% CRM 30 GM TUBE EXT PRN (01:49)
[2024-11-20] MEDS: CETIRIZINE HCL 10 MG TABLET PO ONE (02:51)
--- NOTE | 2024-11-20 09:46 | Discharge Summary ---
Discharge Summary Date of Service November 20, 2024 Principal Dx & Hospital Course #1 = Principal Diagnosis (1) Orthostasis: (2) Dementia: (3) Pulmonary emboli: Plan 74-year-old male PMHx dementia who is presenting for recent onset of chest pain and increased shortness of breath as well as dizziness with near syncope. Workup chronic pulmonary emboli on chest CTA, but otherwise findings are grossly WNL. #Orthostasis Suspect that patient's symptoms of worsening lightheadedness/dizziness occurring mainly when going from sitting to standing or secondary to orthostasis. 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 Did have an episode of chest pain at rest 1 day [employer], radiating to arm/neck, unable to describe quality or severity. notes worsening SOB w/ walking. -Troponin 10.5, w/ repeat at 8.6. No chest pain. - COVID negative. CXR no acute findings. Chest CTA: chronic PE, unchanged. -Echo 11/15: LV systolic function low normal. RV normal w/ size/function. IVC moderately dilated. No significant valvular heart disease. -Head CT 11/17: negative -fludrocortisone added 11/16 - however difficulty with patient taking medications. Will not continue at discharge as patient is home with hospice. -Palliative care team involved, family agreeable to hospice. Home with [facility] hospice -- prn morphine, ativan and zofran. #Dementia H/o dementia at baseline, per . provides majority of history. #Pulmonary emboli, LLL, chronic Ongoing since 02/2024, completed 6 months of Eliquis + no longer taking - Not hypoxic or SOB currently; will monitor-no need for further anticoagulation at this time Dispo: discharge to home today with hospice Updated at bedside 11/18 & 11/19, 11/20. discussed w/ palliative care provider 11/19 Notes For Next Care Provider Medication Changes From Visit morphine, zofran and ativan - hospice meds Admission HPI Per Admitting Provider 74-year-old male PMHx dementia presenting to ED with who helps provide history. States that the patient has been more short of breath starting 1 day prior to arrival and had an episode of chest pain that radiated to his left arm and neck. Shortness of breath was more pronounced with walking which is new for the patient. also states that the evening prior to arrival, he was getting out of the car got very dizzy and almost fell but she was able to help him. That occurred the morning of arrival as well, so she decided that she was ready to take the patient to the ER to be evaluated. States that currently he is not having any chest pain, or shortness of breath. Patient does have history of dementia, therefore history is limited. Patient denies any pain elsewhere. Has been having abnormalities bowel movement switching between constipation and diarrhea, per the due to concerns otherwise. Patient is not on any daily medications. Evaluated in ED revealed no gross abnormalities in CBC, with only abnormalities CMP being chloride 108, BUN 28, BUN/creatinine ratio 22.2. Troponin has remained within normal limits, and EKG is not suggestive of ischemia. Patient's chest CTA did reveal small chronic segmental/subsegmental pulmonary emboli in the RLL which been unchanged since February 2024. Please see Dr. Canales's attestation for adjustments/additions to treatment plan. Discharge Exam patient lying in bed, snoring appears comfortable no resting tremor did not awaken Discharge Plan Discharge Items Patient Disposition: Hospice - Home Reason For Visit: ORTHOSTASIS, SOB Discharge Diagnosis: orthostasis, End stage dementia Activity: As commented below Activity Comment: As tolerated Non-emergency contact: Specialist Call non-emergency contact if: you have any medication questions, your symptoms worsen, your pain is not controlled, your pain is worsening, your pain is unusual for you and your temperature is above 101 Follow-up/Referrals: Pratik Shabazz MD [Primary Care Provider] - (no f/u needed - home with hospice ) Diet: Regular Addtl Attending Provider Instructions: Mr. Navarro, You were hospitalized after having episodes of syncope at home - this all likely related to your autonomic dysfunction and end stage dementia. Unfortunately the medication has not been helpful and your family has decided to focus on your comfort. You will be returning home with hospice. At this point you do not need to follow up with any of your regular doctors or specialist, your hospice agency is now your main point of contact. They will be available 24/ to answer any and all questions that you may have. They will be able to order medications and help with dosings when needed. I have sent in the following medications if needed before hospice is able to send meds: - zofran (ondansetron) - as needed for nausea - morphine - as needed for pain or air hunger - Ativan (lorazepam) - as needed for anxiety/agitation or restlessness You can purchase over the counter hydrocortisone cream if the rash returns on his abdomen. Take care! STACIA Deng Pending Studies at Discharge: No Stand-Alone Forms: My [facility] Medications and DC Order Prescriptions: New lorazepam 0.5 mg Tablet 0.5 mg sublingual Q6H PRN (Reason: agitation) Qty: 20 0RF ondansetron 4 mg Tablet,Disintegrating 4 mg PO Q6H PRN (Reason: nausea and vomiting) Qty: 20 0RF morphine 20 mg/5 mL (4 mg/mL) solution 5 mg PO Q4H PRN (Reason: pain) Qty: 100 0RF Discharge Orders: Discharge Order (Routine); Ordered 11/20/24 Ordered By: Sowmya Jeong/Other Patient Handouts: Starting Hospice, Hospice- Caring for Your Loved One, For Caregivers: Coping Tips Admission Data Admit Date/Time: 11/17/24 09:58 Attending Provider: Bobo Manriquez Admit Provider: Paco Son Primary Care Provider: Pratik Shabazz Other Providers: Sejal Canales; [facility]; Elvia Mcbride; Rena Mattson Other Interventions: Discharge Summary Assessment (RN) Last Done: 11/20/24 10:32 Hospital Stay Data Consultations 11/15/24 12:12 ED Decision to Admit Stat 11/18/24 10:13 Consult Palliative Care Routine Diagnostic Imagining Performed Chest X-Ray 11/15/24 09:05 XR chest 1V portable HISTORY: 74 years-old Male Chest pain, nonspecific COMPARISON: 03/05/2024 TECHNIQUE: AP view of the chest FINDINGS: Cardiomediastinal and hilar silhouettes are within normal limits. Chronic interstitial coarsening. No pneumothorax, pleural effusion, airspace consolidation or pulmonary edema. Bones appear grossly intact. IMPRESSION: No acute process. ACT 112: Negative or not required by law. The above report was generated using voice recognition software. It may contain grammatical, syntax or spelling errors. Electronically signed by: Dayo Rios M.D. 11/15/2024 10:14 AM Chest CTA 11/15/24 10:30 CT angio chest PE protocol CT DOSE: 496.05 mGy.cm HISTORY: 74 years-old Male with PE. Acute shortness of breath TECHNIQUE: Multiple CTA images of the chest were obtained after the intravenous administration of 119 ml Optiray. Coronal and sagittal MIPS were obtained from the axial data set and were submitted for review. All measurements were obtained according to NASCET criteria. A dose lowering technique was utilized adhering to the principles of ALARA. COMPARISON: CTA chest 03/05/2024 FINDINGS: CTA: Cardiomegaly without pericardial effusion. Moderate to extensive coronary artery calcifications. No thoracic aortic aneurysm or dissection. Demonstration of a few small segmental/subsegmental pulmonary emboli within the right lung, similar to prior. No new pulmonary emboli identified. CT CHEST: Unremarkable thyroid. No lymphadenopathy. No pneumothorax, pleural effusion or airspace consolidation. Resolution of the previously described pulmonary opacities. There is mild subsegmental bibasilar atelectasis. Central airways are patent. Pectus excavatum. Left retrocrural calcifications are again noted. Unremarkable soft tissues. No acute fracture is seen. IMPRESSION: 1. Small chronic segmental/subsegmental pulmonary emboli of the right lower lobe, unchanged from 03/05/2024 2. No pleural effusion or airspace consolidation. ACT 112: Negative or not required by law. The above report was generated using voice recognition software. It may contain grammatical, syntax or spelling errors. Electronically signed by: Dayo Rios M.D. 11/15/2024 11:[address] 11/17/24 11:13 CT head/brain wo/w con CLINICAL HISTORY: AMS TECHNIQUE: Contiguous axial CT images of the head from the base of the skull to the vertex before and after intravenous administration of IV contrast and submitted for interpretation. Automated dose lowering techniques and/or adjustment according to patient size were utilized for this examination. CT DOSE: 1250.21 mGy.cm COMPARISON: None available at the time of this dictation. Findings: Areas of decreased attenuation are present in the periventricular and subcortical white matter bilaterally consistent with small vessel ischemic disease. Generalized cerebral atrophy with commensurate enlargement of the ventricles, sulci, and cisterns is also present. There is no acute intracranial hemorrhage or evidence of acute territorial infarction. No shift of the midline structures, mass effect, or extra-axial abnormalities are shown. Atherosclerotic calcifications are present in the intracranial segments of the internal carotid arteries. Imaged portions of the paranasal sinuses and mastoid air cells are clear. The orbits appear normal. There are no acute fractures of the calvaria or scalp swelling. Impression: No acute intracranial hemorrhage, no evidence of acute territorial infarction or other acute intracranial disease process. ACT 112: Negative or not required by law. Electronically signed by: Sinan Mo M.D. 11/17/2024 12:47 PM Pending Results Patient Have Any Pending Studies at Discharge: No Discharge Instructions Given to Patient (Per Discharging Provider) Mr. Navarro, Italo were hospitalized after having episodes of syncope at home - this all likely related to your autonomic dysfunction and end stage dementia. Unfortunately the medication has not been helpful and your family has decided to focus on your comfort. You will be returning home with hospice. At this point you do not need to follow up with any of your regular doctors or specialist, your hospice agency is now your main point of contact. They will be available 24/ to answer any and all questions that you may have. They will be able to order medications and help with dosings when needed. I have sent in the following medications if needed before hospice is able to send meds: - zofran (ondansetron) - as needed for nausea - morphine - as needed for pain or air hunger - Ativan (lorazepam) - as needed for anxiety/agitation or restlessness You can purchase over the counter hydrocortisone cream if the rash returns on his abdomen. Take care! STACIA Deng Total Time Total Time Spent Total Time Spent (In Minutes): Time spent day of discharge 25 minutes including direct patient care, medication reconciliation, documentation, review of labs and images, and coordination of care. Coding Level of Care Code 69418 IN/OBS DISCH 30 MIN/LESS Diagnoses Orthostasis I95.1 Dementia F03.90 Pulmonary emboli I26.99
[2024-11-20] MEDS: ONDANSETRON 4 MG OD TAB PO PRN (10:21)
[2024-11-20] MEDS: LORazepam 0.5 MG TAB SL PRN (10:21)
== END 2024-11-20 11:04 | disposition hospice, home (50) | DRG 312 ==
LOC: ED 08:48 → EDINP 08:48 → SUATTDRO 12:56 → 2N 16:49 → 3E 11-16 15:08 → SUATTDRO 11-17 09:58